=== PATIENT | female | born 1935 | race Caucasian/White ===

== ENCOUNTER 2017-03-14 08:30 | Outpatient (CLI) | payer MEDICARE ==
--- NOTE | 2017-03-14 15:52 | RAD ---
UPPER GI AND SMALL BOWEL: 03/14/17 HISTORY: 81-year-old female with history of small bowel obstruction with difficulty swallowing pills. There is normal swallowing function. There is a slightly prominent cricopharyngeus muscle. There is a lso dorsal indention of the cervical esophagus at the C6-C7 level from prominent disc osteophytes ant eriorly. Patient swallowed a barium tablet with the barium tablet initially hanging up in the vallecu la but did clear with additional swallow of water and passed into the stomach with ease. No esophagea l stricture, ulcer or mass. The fundus, body, and antrum of the stomach are within normal limits. Pylorus, duodenal bulb and C-lo op are unremarkable. Small bowel is well visualized. Barium completely passes through the small bowel and into the colon b y three hours. No evidence for small bowel obstruction. No evidence for significant mucosal fold thic kening or stricture or mass. IMPRESSION: Slightly prominent cricopharyngeus muscle. Some dorsal indention of the cervical esophagus at C6-C7 f rom prominent anterior disc osteophyte. Otherwise, unremarkable upper GI and small bowel series. POS: [facility]
== END 2017-03-14 08:31 | disposition home or self-care (01) ==
LOC: RAD 08:30
PROVIDERS: ATTEND Internal Medicine Gastroenterology
DX: Z09 Encounter for follow-up examination after completed treatment for conditions other than malignant neoplasm (principal); M25.78 Osteophyte, vertebrae; K22.8 Other specified diseases of esophagus; Z87.19 Personal history of other diseases of the digestive system
CPT/HCPCS: 74249

== ENCOUNTER 2018-02-26 10:13 | Inpatient (IN) | payer MEDICARE ==
[~2018-02-26 10:13] MED LIST: MD-Gastroview 120 ML BOT ONE
[2018-02-26 12:16] LABS: #Lymphocytes 1.3 thou/uL (1.20-3.40); #Monocytes 1.1 thou/uL (0.11-0.59); #Neutrophils 9.1 thou/uL (1.40-6.50); %Basophils 0.1 % (0.0-1.0); %Eosinophils 0.2 % (0.0-10.0); %Lymphocytes 11.4 % (21.0-51.0); %Monocytes 9.8 % (0.0-10.0); %Neutrophils 78.5 % (42.0-75.0); Hemoglobin 13.2 g/dL (12.0-16.0); Mean Corpuscular HGB CONC 31.5 g/dL (32.0-36.0); Mean Corpuscular Hemoglobin 30.7 pg (27.0-31.0); Mean Corpuscular Volume 97.5 fL (78.0-98.0); Mean Platelet Volume 6.5 fL (7.4-10.4); Platelet Count 302 thou/uL (130-400); RBC Distribution Width 13.2 % (11.5-14.5); Red Blood Cell (RBC) Count 4.29 mill/uL (4.20-5.40); White Blood Cell (WBC) Count 11.6 thou/uL (4.8-10.8)
[2018-02-26 12:37] LABS: ALT (SGPT) 8 U/L (8-55); AST (SGOT) 8 U/L (5-34); Albumin 3.1 g/dL (3.4-4.8); Alkaline Phosphatase 59 U/L (40-150); Anion Gap 14 mmol/L (10-20); BUN (Urea Nitrogen) 8 mg/dL (9.8-20.1); Bilirubin, Total 2.6 mg/dL (0.2-1.2); Calc. Creatinine Clearance 0 mL/min (70-130); Calcium 9.4 mg/dL (7.8-10.44); Carbon Dioxide 31 mmol/L (23-31); Chloride 94 mmol/L (98-107); Estimated GFR-MDRD 83; Globulin 2.4 g/dL (2.4-3.5); Glucose 100 mg/dL (83-110); Potassium 3.4 mmol/L (3.5-5.1); Protein, Total 5.5 g/dL (6.0-8.3); Sodium 136 mmol/L (136-145)
[2018-02-26] MEDS ORDERED: Benzocaine 20% Spray 60 ML CAN ONE (12:48)
[2018-02-26] MEDS ORDERED: Oxymetazoline HCl 0.05% ( 15 ML ) ONE (12:48)
[2018-02-26] MEDS ORDERED: Lidocaine Viscous Sol 2% 15 ml UD Cup ONE (12:59)
--- NOTE | 2018-02-26 13:04 | RAD ---
TWO VIEWS ABDOMEN AND 1 VIEW CHEST: HISTORY: Left lower quadrant pain, x 2 days. Small bowel obstruction. COMPARISON: 10/07/2002, chest radiograph 07/19/2014. FINDINGS: Atherosclerosis of the aorta. Normal cardiac silhouette. The pulmonary vessels and hilum are normal . Costophrenic angles are clear. There is increased opacification of the lung apices which may repr esent bilateral apical pleural thickening. There is no pneumothorax. No acute osseous abnormalities . Left-sided transvenous pacemaker terminates over the region of the right atrium and right ventricl e. TWO VIEWS ABDOMEN: There are multiple air-filled loops of distended small bowel, predominantly in the left hemiabdomen. There is a paucity of gas in the colon. There are degenerative changes of the lumbar spine with mil d scoliotic curvature, end plate osteophyte changes, and vacuum disk phenomenon. IMPRESSION: 1. Small bowel obstruction. 2. No acute cardiopulmonary process. POS: [facility]
[2018-02-26 13:52] LABS: Magnesium 1.5 mg/dL (1.6-2.6); Phosphorus 4.1 mg/dL (2.3-4.7)
--- NOTE | 2018-02-26 14:11 | RAD ---
ABDOMEN ONE VIEW: History: 82-year-old female with history of small bowel obstruction for NG tube placement evaluation. FINDINGS: Left ICD. Monitor leads overlie the chest. An NG tube has been placed which is somewhat coiled within the upper stomach. Abnormally dilated small bowel loops, evidence for small bowel obstruction. IMPRESSION: NG tube in place. Abnormal small bowel dilatation, evidence for small bowel obstruction. Continued fo llow up for clearing or stability. POS: [facility]
[2018-02-26] MEDS ORDERED: Morphine 2 MG/ML SYRINGE ONE (14:30)
[2018-02-26] MEDS ORDERED: hydrALAZINE 20 MG/ML VIAL SLOW IVP PRN (14:55)
[2018-02-26] MEDS ORDERED: Sodium Chloride 0.65% Nasal 44 ML BOT EA NARE PRN (14:55)
[2018-02-26] MEDS ORDERED: Morphine 2 MG/ML SYRINGE SLOW IVP PRN (14:55)
[2018-02-26] MEDS ORDERED: Acetaminophen 650 MG Suppository PR PRN (14:55)
[2018-02-26] MEDS ORDERED: Eucerin (Mineral Oil/Petrolatum,White) 30 gm Jar TOP PRN (14:55)
[2018-02-26] MEDS ORDERED: Cepastat Lozenges 1 LOZ PO PRN (14:55)
[2018-02-26] MEDS ORDERED: Bisacodyl 10 MG SUPP PR PRN (14:55)
[2018-02-26] MEDS ORDERED: Ondansetron PF 4 MG/2 ML Vial IVP PRN (14:55)
[2018-02-26] MEDS ORDERED: Artificial Tear Sol 15 ML BOT EA EYE PRN (14:55)
--- NOTE | 2018-02-26 15:07 | HP ---
PRIMARY CARE PHYSICIAN: City call admission. REASON FOR ADMISSION: Transfer from [facility] for small-bowel obstructi on. HISTORY OF PRESENT ILLNESS: An 82-year-old female who was evaluated today at [facility], she went there for nausea, vomiting and abdominal pain predominantly in left lower q uadrant for the last 2 days. She was having nausea, vomiting, and abdominal pain, which was getting worse with food. She also had several vomiting. She was uncomfortable at home. Her pain was about 10/10 in intensity with intermittent exacerbation. Patient also has history of small bowel obstructi on in the past and this time, patient was diagnosed with a small-bowel obstruction based on investiga tion done at [facility] and subsequently, patient was sent to our [facility] for higher level of care. In our emergency room, patient had NG tube placed; after that, pain was improving. Patient reports that in January, patient had a mechanical fall at doctor's office. Subsequently, she required hospitalization at [facility] for about a week and subsequently, she w as released to [facility] for 2 weeks. During that period, she had a decubitus ulcer in the sacral area that was gradually improving after wound care through home health when she release d from [facility], but still she is feeling sore in her sacral area. Currently, patient feels weak. She denies any fever or chills. She denies any UTI symptoms. She de nies any constipation, diarrhea, melena, hematochezia, hematemesis. REVIEW OF SYSTEMS: The following complete review of systems was negative, unless otherwise mentioned in the HPI or below: Constitutional: Weight loss or gain, ability to conduct usual activities. Sk in: Rash, itching. Eyes: Double vision, pain. ENT/Mouth: Nose bleeding, neck stiffness, pain, te nderness. Cardiovascular: Palpitations, dyspnea on exertion, orthopnea. Respiratory: Shortness of breath, wheezing, cough, hemoptysis, fever or night sweats. Gastrointestinal: Poor appetite, abdom inal pain, heartburn, nausea, vomiting, constipation, or diarrhea. Genitourinary: Urgency, frequenc y, dysuria, nocturia. Musculoskeletal: Pain, swelling. Neurologic/Psychiatric: Anxiety, depressio n. Allergy/Immunologic: Skin rash, bleeding tendency. Please see my HPI for pertinent positive and negative. All other review of system are reviewed and negative except as mentioned in the HPI. PAST MEDICAL HISTORY: Hypothyroidism, hypertension, gastroesophageal reflux disease, dyslipidemia, h istory of small-bowel obstruction, history of subarachnoid hemorrhage endometrial cancer, paroxysmal atrial fibrillation, hypertension. PAST SURGICAL HISTORY: Hernia repair x3, tonsillectomy, small-bowel obstruction required surgery in the past, carotid endarterectomy, cataract surgery, cholecystectomy, hysterectomy, right hip repair, rotator cuff repair, pacemaker placement. PAST PSYCHIATRIC HISTORY: Reviewed and negative. SOCIAL HISTORY: Patient is and lives at home with her . No history of tobacco, alcoh ol or illicit drug abuse. FAMILY HISTORY: No strong family history of premature coronary artery disease, stroke or cancer. EMERGENCY ROOM COURSE: Reviewed at [facility] where she was given Zosyn, IV fluid, Zofr an. ALLERGIES: CODEINE SULFATE, IODINE, LISINOPRIL, LOSARTAN and SULFA. CURRENT HOME MEDICATIONS: Aspirin 81 mg daily, Synthroid 50 mcg p.o. daily, calcium with vitamin D3 two tablets p.o. twice daily, Coenzyme Q10 one tablet daily, potassium chloride one tablet daily, mag nesium one tablet daily, Toprol-XL 25 mg twice daily, Prilosec 10 mg daily, Zocor 10 mg p.o. daily, s otalol 120 mg daily. Above-mentioned medication is based on emergency room record, the patient's family member does not biswas ve any medication with them and so unable to verify. PHYSICAL EXAMINATION: VITAL SIGNS: Currently, blood pressure 193/67, pulse 68, respiratory rate 20, temperature 97.9, satu ration 93% on room air, weight 58.5 kilograms. GENERAL: Patient is currently alert, awake hypertensive, in mild distress due to pain. HEAD: Normocephalic, atraumatic. EYES: Pupils are round, reactive to light. Extraocular muscles are intact. ENT: Oropharynx within normal limit. NG tube in place with low intermittent suction. NECK: Supple, no JVD, no thyromegaly, no carotid bruit. LUNGS: Clear to auscultation without any rhonchi or rales. CARDIAC: S1, S2 appears irregular. No murmur elicited, no gallop, no rub. ABDOMEN: Patient does have diffuse soreness, but predominantly in left lower quadrant. Bowel sound is tinkling sounds, but bowel sounds are now hypoactive. No organomegaly, no mass, no peritoneal sig n, no suprapubic tenderness. BACK: Unremarkable, no CVA tenderness. EXTREMITIES: Upper extremity: Passive movement of all joints are normal. Lower extremity: No mikayla a. Good distal pulsation. SKIN: No skin rash. HEMATOLOGICAL: No lymphadenopathy. BACK: Unable to review sacral part because patient is weak. SIGNIFICANT LABORATORY DATA: BMP: Sodium 136, potassium 3.4, chloride 94, carbon dioxide 31, anion gap 14, BUN 8, creatinine 0.68, glucose 100, calcium 9.4. LFT: Bilirubin 2.6, protein 5.5, albumin 3.1, alkaline phosphatase 59, AST , ALT 8. CBC: WBC 11.6, hemoglobin 13.2, platelet count 302 . [facility] record reviewed. ASSESSMENT AND PLAN: 1. Small-bowel obstruction. Patient's clinical presentation is consistent with small-bowel obstruct ion. Currently, patient is treated conservatively with NG tube with low intermittent suction. We wi ll keep her n.p.o. General Surgery will be consulted. Tomorrow, we will perform small bowel x-ray. We will treat her pain with morphine 2 mg IV q.2 hourly p.r.n., Pepcid 20 mg IV b.i.d. We will repl nicho electrolytes and continue with IV fluid for hydration. 2. Hypokalemia. We will replace potassium with IV fluid and we will repeat labs tomorrow. 3. Hypomagnesemia, magnesium sulfate 3 grams will be given and we will repeat magnesium level tomorr ow. 4. Hypertension. At this point, the patient is n.p.o., so we will hold on oral medication, but will use hydralazine and labetalol p.r.n. basis for blood pressure more than 170. Once patient's p.o. in take resumed and after confirming patient's home medication, we will resume selected blood pressure m edication. 5. Hypothyroidism. We will hold Synthroid therapy for now and will restart the patient's home dose of Synthroid when patient is able to take p.o. intake. 6. Paroxysmal atrial fibrillation. We will monitor and will continue patient's home medication upon confirmation. 7. Gastroesophageal reflux disease. We will continue Pepcid 20 mg IV b.i.d. 8. Dyslipidemia. We will resume Zocor therapy upon confirmation. 9. Deep venous thrombosis prophylaxis. Lovenox 40 mg subcu daily. 10. Gastrointestinal prophylaxis, Pepcid 20 mg IV b.i.d. 11. Code status: Patient is FULL CODE. Patient's is surrogate decision maker. 12. Decubitus ulcer. We will consult Wound Care team and we will review entire skin and treat appro priately. 13. Code status: Patient is FULL CODE. Patient's is surrogate decision maker. Disposition plan based on clinical course. We are expecting patient's stay in hospital more than 2 m idnights. Plan of care discussed with the patient and her at bedside in the emergency room.
[2018-02-26] MEDS ORDERED: Magnesium Sulfate 3 GM in Sodium Chloride 0.9% 100 ML IVPB SCH (15:30)
[2018-02-26] MEDS: D5 1/2 NS w/20 mEq KCL 1,000 ML IV SCH (16:01)
[2018-02-26 16:25] VITALS: BMI 20.2
[2018-02-26] MEDS: Famotidine/PF 20 mg/2ml Vial SLOW IVP SCH (20:08)
--- NOTE | 2018-02-26 22:23 | RAD ---
SMALL BOWEL EXAM: 02/26/18 Gastrografin is given through an NG tube. INDICATIONS: Small bowel obstruction. Sequential images were taken out to 3 hours 20 minutes. On the sweeping compound blender film, there are dilated gas filled loops of small bowel in the mid abdomen. Some scatter ed stool in the colon. At one hour, there is opacification of dilated loops of small bowel in the left abdomen which appear to represent jejunum. On the two hour film there is mild progression of contrast into the mid small bowel with continued di lated loops. Patient continued to have nausea and vomiting. A 3 hour and 20 minute was taken even tho ugh patient continued to vomit. There has been no progression of contrast on 3 hour and 20 minute zay m. Contrast remains in the stomach. Exam was terminated at this point so that patient could be reatta ched to suction. Followup abdominal films can be obtained as desired. IMPRESSION: Evidence of high grade small bowel obstruction in the mid small bowel. Contrast did not move beyond m id small bowel out to 3 hours and 20 minutes and patient continued to have vomiting. POS: [facility]
[2018-02-26] MEDS: Labetalol HCl 100 MG/20 ML VIAL SLOW IVP PRN (23:52)
[2018-02-27] MEDS: D5 1/2 NS w/20 mEq KCL 1,000 ML IV SCH ×3 (02:04→21:52)
[2018-02-27 05:39] LABS: #Monocytes 1.2 thou/uL (0.11-0.59); %Basophils 0.1 % (0.0-1.0); %Eosinophils 0.1 % (0.0-10.0); %Lymphocytes 6.8 % (21.0-51.0); %Monocytes 8.4 % (0.0-10.0); %Neutrophils 84.5 % (42.0-75.0); Hemoglobin 12.9 g/dL (12.0-16.0); Mean Corpuscular Hemoglobin 31.1 pg (27.0-31.0); Mean Corpuscular Volume 97.3 fL (78.0-98.0); Mean Platelet Volume 6.6 fL (7.4-10.4); Platelet Count 340 thou/uL (130-400); RBC Distribution Width 13.4 % (11.5-14.5); Red Blood Cell (RBC) Count 4.15 mill/uL (4.20-5.40); White Blood Cell (WBC) Count 14.2 thou/uL (4.8-10.8)
[2018-02-27 05:54] LABS: Lactic Acid 1.7 mmol/L (0.5-2.2)
[2018-02-27 05:59] LABS: ALT (SGPT) 8 U/L (8-55); AST (SGOT) 10 U/L (5-34); Albumin 3.3 g/dL (3.4-4.8); Alkaline Phosphatase 59 U/L (40-150); Anion Gap 13 mmol/L (10-20); BUN (Urea Nitrogen) 14 mg/dL (9.8-20.1); Calc. Creatinine Clearance 51 mL/min (70-130); Calcium 9.8 mg/dL (7.8-10.44); Carbon Dioxide 33 mmol/L (23-31); Chloride 96 mmol/L (98-107); Estimated GFR-MDRD 70; Globulin 2.7 g/dL (2.4-3.5); Glucose 163 mg/dL (83-110); Potassium 3.2 mmol/L (3.5-5.1); Sodium 139 mmol/L (136-145)
[2018-02-27 07:31] LABS: Clarity CLOUDY (Clear)
[2018-02-27 07:33] LABS: Bacteria/HPF None Seen HPF (None Seen); Hyaline Casts/LPF 0-3 HYALINE CAST LPF (0-3 Hyaline); Pathc Cast-AUWi Flag 0.87 (0-2.49); Squamous Epithelial 0-3 HPF (0-3)
[2018-02-27 07:40] LABS: Leukocyte Unable to Interpret (Negative); Nitrite Unable to Interpret (Negative)
[2018-02-27 07:41] LABS: Bilirubin Unable to Interpret (Negative); Blood, Urine Unable to Interpret (Negative); Glucose, Urine (Dipstick) Unable to Interpret mg/dL (Negative); Protein, Urine (Dipstick) Unable to Interpret mg/dL (Neg-Trace); Urobilinogen UNABLE TO INTERPRET mg/dL (0.2-1.0)
[2018-02-27 07:52] LABS: Specific Gravity, Urine 1.016 (1.002-1.036); pH, Urine 6.1 (5.0-9.0)
[2018-02-27] MEDS: Enoxaparin Sodium 40 MG/0.4 ML SYRINGE SC SCH (08:08)
[2018-02-27] MEDS: Famotidine/PF 20 mg/2ml Vial SLOW IVP SCH ×2 (08:08→21:53)
--- NOTE | 2018-02-27 09:38 | PDOC.PN ---
- Subjective Encounter Start Date: 02/27/18 Encounter Start Time: 08:00 -: old records requested/rev Patient seen and examined. No new complaints. No overnight events - Objective Resuscitation Status: Resuscitation Status FULL:Full Resuscitation MAR Reviewed: Yes Vital Signs & Weight: Vital Signs (12 hours) Temp Pulse Resp BP BP Pulse Ox 02/27/18 07:42 97.5 F L 68 16 170/73 H 95 02/27/18 04:45 162/71 H 02/27/18 04:00 97.4 F L 69 20 167/70 H 95 02/27/18 01:25 123/77 02/27/18 00:07 172/79 H 02/26/18 23:59 64 172/80 H 02/26/18 23:55 64 196/78 H 02/26/18 23:52 66 196/111 H 02/26/18 23:50 97.6 F 66 16 196/111 H 97 Weight Weight 129 lb I&O: 02/26/18 02/27/18 02/28/18 06:59 06:59 06:59 Intake Total 900 Output Total 3700 Balance -2800 Result Diagrams: 02/27/18 05:14 02/27/18 05:14 Radiology Reviewed by me: Yes (small bowel xray noted) Phys Exam - Physical Examination Constitutional: NAD HEENT: PERRLA, moist MMs, sclera anicteric NG tube+ Neck: no JVD, supple Respiratory: no wheezing, no rales, no rhonchi Cardiovascular: RRR, no significant murmur, no rub Gastrointestinal: soft, non-tender, no distention, positive bowel sounds Musculoskeletal: no edema, pulses present Neurological: non-focal, normal sensation, moves all 4 limbs Lymphatic: no nodes Psychiatric: normal affect, A&O x 3 Skin: no rash, normal turgor Dx/Plan (1) SBO (small bowel obstruction) Code(s): K56.609 - UNSP INTESTNL OBST, UNSP TO PARTIAL VERSUS COMPLETE OBST Status: Acute (2) Hypokalemia Code(s): E87.6 - HYPOKALEMIA Status: Acute (3) Hypomagnesemia Code(s): E83.42 - HYPOMAGNESEMIA Status: Acute (4) Dyslipidemia Code(s): E78.5 - HYPERLIPIDEMIA, UNSPECIFIED Status: Chronic (5) Hypertension Code(s): I10 - ESSENTIAL (PRIMARY) HYPERTENSION Status: Chronic (6) Hypothyroidism Code(s): E03.9 - HYPOTHYROIDISM, UNSPECIFIED Status: Chronic (7) PAF (paroxysmal atrial fibrillation) Code(s): I48.0 - PAROXYSMAL ATRIAL FIBRILLATION Status: Chronic - Plan cont current plan of care * continue IVF * continue NG tube with LIS * General surgery on case * pain controlled * medication reviewed as below * symptomatic treatment. Review of Systems - Review of Systems ENT: negative: Ear Pain, Ear Discharge, Nose Pain, Nose Discharge, Nose Congestion, Mouth Pain, Mouth Swelling, Throat Pain, Throat Swelling, Other Respiratory: negative: Cough, Dry, Shortness of Breath, Hemoptysis, SOB with Excertion, Pleuritic Pain, Sputum, Wheezing Cardiovascular: negative: chest pain, palpitations, orthopnea, paroxysmal nocturnal dyspnea, edema, light headedness, other Gastrointestinal: negative: Nausea, Vomiting, Abdominal Pain, Diarrhea, Constipation, Melena, Hematochezia, Other Genitourinary: negative: Dysuria, Frequency, Incontinence, Hematuria, Retention , Other Musculoskeletal: negative: Neck Pain, Shoulder Pain, Arm Pain, Back Pain, Hand Pain, Leg Pain, Foot Pain, Other - Medications/Allergies Allergies/Adverse Reactions: Allergies Allergy/AdvReac Type Severity Reaction Status Date / Time codeine Allergy Verified 07/19/14 13:17 iodine Allergy Verified 07/19/14 13:17 lisinopril Allergy Verified 07/19/14 13:17 losartan [Losartan] Allergy Verified 07/19/14 13:17 Sulfa (Sulfonamide Allergy Verified 07/19/14 13:17 Antibiotics) Medications: Current Medications Acetaminophen (Tylenol) 650 mg NC Q4H PRN PRN Reason: Headache/Fever/Mild Pain (1-3) Albuterol/Ipratropium (Duoneb) 3 ml NEB [id number] PRN PRN Reason: SOB &/or Wheezing Artificial Tears (Tears Renewed 15ml Bottle) 2 drop EA EYE PRN PRN PRN Reason: Dry Eyes Bisacodyl (Dulcolax) 10 mg NC DAILYPRN PRN PRN Reason: Constipation Enoxaparin Sodium (Lovenox) 40 mg SC 0900 [facility] Last Admin: 02/27/18 08:08 Dose: 40 mg Famotidine (Pepcid) 20 mg SLOW IVP Q12HR [facility] Last Admin: 02/27/18 08:08 Dose: 20 mg Hydralazine HCl (Apresoline) 10 mg SLOW IVP Q4H PRN PRN Reason: SBP Greater Than 170 Potassium Chloride/Dextrose/Sod Cl (D5 1/2 Ns W/20 Meq Kcl) 1,000 mls @ 100 mls /hr IV .Q10H [facility] Last Admin: 02/27/18 02:04 Dose: Not Given Labetalol HCl (Normodyne) 20 mg SLOW IVP Q4H PRN PRN Reason: SBP Greater Than 170 Last Admin: 02/26/18 23:52 Dose: 20 mg Mineral Oil/White Petrolatum (Eucerin Cream) 0 gm TOP BIDPRN PRN PRN Reason: Dry Skin Morphine Sulfate (Morphine) 2 mg SLOW IVP Q2H PRN PRN Reason: Pain Ondansetron HCl (Zofran) 4 mg IVP Q6H PRN PRN Reason: Nausea/Vomiting Last Admin: 02/26/18 20:06 Dose: 4 mg Sodium Chloride ([place] Nasal [place] 0.65%) 0 ml EA NARE QIDPRN PRN PRN Reason: Nasal Congestion Throat Lozenges (Cepastat Lozenges) 1 danita PO Q2H PRN PRN Reason: Sore Throat
--- NOTE | 2018-02-27 11:16 | RAD ---
ABDOMEN ONE VIEW: History: Small bowel obstruction. Comparison: Small bowel follow through prior day. FINDINGS: There is contrast in the proximal small bowel. No contrast is seen in the colon. IMPRESSION: Findings suggesting a high grade small bowel obstruction. POS: [facility]
--- NOTE | 2018-02-27 18:58 | PRG ---
DATE OF SERVICE: 02/27/2018 SUBJECTIVE: The patient on the surgical floor that we are seen in consultation for suspected small-b owel obstruction. The patient yesterday was evaluated by Dr. Cyr, who ordered a small bowel follow through study which showed findings suggesting a high grade small-bowel obstruction. Overnight, she was on nasogastric tube at low intermittent suction and she tolerated this well. This morning, she states that she is not passing any gas nor had a bowel movement, but her nausea is definitely improve d and she has no abdominal pain. PHYSICAL EXAMINATION: VITAL SIGNS: Temperature is 97.5, heart rate 68, blood pressure 170/73, respirations 16, oxygen satu ration 95% on room air. GENERAL: The patient is resting comfortably in bed. She is awake, alert, and appropriate. HEENT: Unremarkable. NG tube is intact and functioning. LUNGS: Clear to auscultation bilaterally. HEART: Regular rate and rhythm. ABDOMEN: Soft, nontender with questionable hypoactive bowel sounds. EXTREMITIES: Neurovascularly intact x4. LABORATORY DATA: White blood cell count 14.2, hemoglobin 12.9, hematocrit 40.4, platelets 340. Sodi um 139, potassium 3.2, chloride 96, CO2 of 33, BUN 14, creatinine 0.79, glucose 163. KUB this mornin g again shows findings suspicious of high grade small-bowel obstruction, though compared to yesterday 's small bowel follow through appears that there may have been some movement of contrast. ASSESSMENT AND PLAN: Likely small-bowel obstruction. Plan will be to continue conservative management, NG tube to low intermittent suction. Continue n.p. o. status, IV hydration and await for return of bowel function. The examination, laboratory and radi ographic findings were discussed with Dr. Cyr this morning and he will reexamine the patient again in the morning.
[2018-02-28] MEDS: D5 1/2 NS w/20 mEq KCL 1,000 ML IV SCH ×3 (09:15→19:52)
--- NOTE | 2018-02-28 09:17 | PDOC.PN ---
- Subjective Encounter Start Date: 02/28/18 Encounter Start Time: 08:00 -: old records requested/rev Patient seen and examined. No new complaints. No overnight events NG tube removed - Objective Resuscitation Status: Resuscitation Status FULL:Full Resuscitation MAR Reviewed: Yes Vital Signs & Weight: Vital Signs (12 hours) Temp Pulse Resp BP Pulse Ox 02/28/18 06:56 98.2 F 69 18 174/73 H 94 L 02/28/18 04:06 97.9 F 71 18 144/62 H 95 02/28/18 00:00 98.2 F 62 18 160/68 H 93 L 02/27/18 21:52 97 Weight Weight 129 lb I&O: 02/27/18 02/28/18 03/01/18 06:59 06:59 06:59 Intake Total 900 1200 Output Total 3700 50 Balance -2800 1150 Result Diagrams: 02/27/18 05:14 02/27/18 05:14 Phys Exam - Physical Examination Constitutional: NAD HEENT: PERRLA, moist MMs, sclera anicteric Neck: no JVD, supple Respiratory: no wheezing, no rales, no rhonchi Cardiovascular: RRR, no significant murmur, no rub Gastrointestinal: soft, non-tender, no distention, positive bowel sounds Musculoskeletal: no edema, pulses present Neurological: non-focal, normal sensation Lymphatic: no nodes Psychiatric: normal affect Skin: no rash, normal turgor Dx/Plan (1) SBO (small bowel obstruction) Code(s): K56.609 - UNSP INTESTNL OBST, UNSP TO PARTIAL VERSUS COMPLETE OBST Status: Acute (2) Hypokalemia Code(s): E87.6 - HYPOKALEMIA Status: Acute (3) Hypomagnesemia Code(s): E83.42 - HYPOMAGNESEMIA Status: Acute (4) Dyslipidemia Code(s): E78.5 - HYPERLIPIDEMIA, UNSPECIFIED Status: Chronic (5) Hypertension Code(s): I10 - ESSENTIAL (PRIMARY) HYPERTENSION Status: Chronic (6) Hypothyroidism Code(s): E03.9 - HYPOTHYROIDISM, UNSPECIFIED Status: Chronic (7) PAF (paroxysmal atrial fibrillation) Code(s): I48.0 - PAROXYSMAL ATRIAL FIBRILLATION Status: Chronic - Plan cont current plan of care * pt is NPO, diet advancement will defer to surgeon * she has Bowel sound now, but has no BM yet, will continue to monitor * continue IVF for now * repeat labs tomorrow * medication reviewed as below * symptomatic treatment * I have updated condition to her . Review of Systems - Review of Systems ENT: negative: Ear Pain, Ear Discharge, Nose Pain, Nose Discharge, Nose Congestion, Mouth Pain, Mouth Swelling, Throat Pain, Throat Swelling, Other Respiratory: negative: Cough, Dry, Shortness of Breath, Hemoptysis, SOB with Excertion, Pleuritic Pain, Sputum, Wheezing Cardiovascular: negative: chest pain, palpitations, orthopnea, paroxysmal nocturnal dyspnea, edema, light headedness, other Gastrointestinal: negative: Nausea, Vomiting, Abdominal Pain, Diarrhea, Constipation, Melena, Hematochezia, Other Genitourinary: negative: Dysuria, Frequency, Incontinence, Hematuria, Retention , Other Musculoskeletal: negative: Neck Pain, Shoulder Pain, Arm Pain, Back Pain, Hand Pain, Leg Pain, Foot Pain, Other Skin: negative: Rash, Lesions, Chas, Bruising, Other Other: not reliable due to her level of cognitive status - Medications/Allergies Allergies/Adverse Reactions: Allergies Allergy/AdvReac Type Severity Reaction Status Date / Time codeine Allergy Verified 07/19/14 13:17 iodine Allergy Verified 07/19/14 13:17 lisinopril Allergy Verified 07/19/14 13:17 losartan [Losartan] Allergy Verified 07/19/14 13:17 Sulfa (Sulfonamide Allergy Verified 07/19/14 13:17 Antibiotics) Medications: Current Medications Acetaminophen (Tylenol) 650 mg MS Q4H PRN PRN Reason: Headache/Fever/Mild Pain (1-3) Albuterol/Ipratropium (Duoneb) 3 ml NEB [id number] PRN PRN Reason: SOB &/or Wheezing Artificial Tears (Tears Renewed 15ml Bottle) 2 drop EA EYE PRN PRN PRN Reason: Dry Eyes Bisacodyl (Dulcolax) 10 mg MS DAILYPRN PRN PRN Reason: Constipation Enoxaparin Sodium (Lovenox) 40 mg SC 0900 [facility] Last Admin: 02/27/18 08:08 Dose: 40 mg Famotidine (Pepcid) 20 mg SLOW IVP Q12HR [facility] Last Admin: 02/27/18 21:53 Dose: 20 mg Hydralazine HCl (Apresoline) 10 mg SLOW IVP Q4H PRN PRN Reason: SBP Greater Than 170 Potassium Chloride/Dextrose/Sod Cl (D5 1/2 Ns W/20 Meq Kcl) 1,000 mls @ 100 mls /hr IV .Q10H [facility] Last Admin: 02/28/18 09:15 Dose: 1,000 mls Labetalol HCl (Normodyne) 20 mg SLOW IVP Q4H PRN PRN Reason: SBP Greater Than 170 Last Admin: 02/26/18 23:52 Dose: 20 mg Mineral Oil/White Petrolatum (Eucerin Cream) 0 gm TOP BIDPRN PRN PRN Reason: Dry Skin Morphine Sulfate (Morphine) 2 mg SLOW IVP Q2H PRN PRN Reason: Pain Ondansetron HCl (Zofran) 4 mg IVP Q6H PRN PRN Reason: Nausea/Vomiting Last Admin: 02/26/18 20:06 Dose: 4 mg Sodium Chloride ([place] Nasal [place] 0.65%) 0 ml EA NARE QIDPRN PRN PRN Reason: Nasal Congestion Throat Lozenges (Cepastat Lozenges) 1 danita PO Q2H PRN PRN Reason: Sore Throat
[2018-02-28] MEDS: Enoxaparin Sodium 40 MG/0.4 ML SYRINGE SC SCH (09:19)
[2018-02-28] MEDS: Famotidine/PF 20 mg/2ml Vial SLOW IVP SCH ×2 (09:19→22:07)
--- NOTE | 2018-02-28 10:07 | RAD ---
ABDOMEN RADIOGRAPH FRONTAL VIEW KUB: INDICATION: Small bowel obstruction, followup. FINDINGS: There is enteric contrast localizing to the distal transverse and descending colon. There are scatte red air-filled bowel loops without significant dilatation. No free air visualized. Imaged lung base s are clear. IMPRESSION: Contrast has traversed to the level of the distal colon. POS: [facility]
[2018-02-28] MEDS ORDERED: Lactinex Tablet PO SCH (11:00)
--- NOTE | 2018-02-28 11:56 | CT ---
CT HEAD WITHOUT CONTRAST: Multiple axial tomograms were obtained through the head without iv enhancement. INDICATION: Altered mental status. COMPARISON: No comparison. FINDINGS: Ventricles have normal size and position. Moderate chronic ischemic white matter change is seen. No evidence of intracranial mass or hemorrhage. No evidence of cortical infarct. Sinuses and mastoids are clear. IMPRESSION: Chronic ischemic white matter changes are evident. No evidence of acute process. POS: [facility]
--- NOTE | 2018-02-28 14:44 | PRG ---
DATE OF SERVICE: 02/28/2018 SUBJECTIVE: The patient is currently on the surgical floor. She is a patient we are seeing in consu ltation for a small-bowel obstruction. Last night, the patient removed her nasogastric tube. We mad e the decision to allow to stay out overnight to see how she tolerated this. By report from the nurs es, she had no nausea or vomiting afterwards. This morning she states that she feels a little little better. She believes she is passing gas and had a small bowel movement. The patient seems somewhat confused this morning and more so than yesterday. Her is not here to verify how she is acti ng this morning. In regards to whether this her baseline or not. PHYSICAL EXAMINATION: VITAL SIGNS: Temperature is 98.2, heart rate 69, respirations 18, oxygen saturation 94% on room air, blood pressure is 174/73. GENERAL: The patient is awake, conversant, appropriate. She just appears to be somewhat confused. HEENT: Unremarkable. LUNGS: Clear to auscultation with moderate inspiratory and expiratory effort. HEART: Regular rate and rhythm. ABDOMEN: Soft, flat, nontender with hypoactive bowel sounds. EXTREMITIES: Neurovascularly intact x4. LABORATORY DATA: There are no labs or radiographs to review this morning. ASSESSMENT AND PLAN: Probable small-bowel obstruction, resolving. Plan will be to continue conservative management. We will allow her clear liquid diet this morning. In light of her mental status, we will do a noncontrasted brain CT study over this morning. Of note , just prior to this dictation the patient was seen with physical therapy, ambulating with minimal as sistance. We will also repeat a urinalysis. Her original on admission was inconclusive. The evalua tion and examination were done with Dr. Cyr this morning during rounds.
[2018-02-28] MEDS ORDERED: diphenhydrAMINE 50 MG/ML VIAL IVP SCH (19:45)
[2018-02-28] MEDS ORDERED: Lorazepam 2 MG/ML VIAL SLOW IVP SCH (19:45)
[2018-02-28] MEDS: Senokot S 8.6-50 MG TAB PO SCH (22:07)
[2018-02-28] MEDS: Simvastatin 5 MG TAB PO SCH (22:07)
[2018-02-28] MEDS: Sotalol HCl 80 MG TAB PO SCH (22:07)
[2018-03-01] MEDS: Levothyroxine Sodium 50 MCG TAB PO SCH (05:36)
[2018-03-01 06:25] LABS: Anion Gap 10 mmol/L (10-20); BUN (Urea Nitrogen) 8 mg/dL (9.8-20.1); Calc. Creatinine Clearance 68 mL/min (70-130); Calcium 8.2 mg/dL (7.8-10.44); Carbon Dioxide 28 mmol/L (23-31); Chloride 103 mmol/L (98-107); Estimated GFR-MDRD Greater than 90; Glucose 93 mg/dL (83-110); Sodium 137 mmol/L (136-145)
[2018-03-01] MEDS ORDERED: Diabetic Tussin 200 MG/10 ML UDCUP PO PRN (06:44)
[2018-03-01] MEDS ORDERED: Acetaminophen 500 MG TAB PO PRN (06:44)
[2018-03-01] MEDS ORDERED: Loratadine 10 MG TAB PO PRN (06:44)
[2018-03-01] MEDS ORDERED: Ondansetron ODT 4 MG TAB SL PRN (06:44)
[2018-03-01 06:53] LABS: #Basophils 0.1 thou/uL (0.0-0.2); #Eosinphils 0.4 thou/uL (0.0-0.7); #Lymphocytes 1.4 thou/uL (1.20-3.40); #Neutrophils 3.6 thou/uL (1.40-6.50); %Basophils 1.3 % (0.0-1.0); %Eosinophils 5.5 % (0.0-10.0); %Lymphocytes 22.5 % (21.0-51.0); %Monocytes 14.9 % (0.0-10.0); %Neutrophils 55.8 % (42.0-75.0); Hemoglobin 10.8 g/dL (12.0-16.0); Mean Corpuscular HGB CONC 32.7 g/dL (32.0-36.0); Mean Corpuscular Hemoglobin 32.2 pg (27.0-31.0); Mean Corpuscular Volume 98.2 fL (78.0-98.0); Mean Platelet Volume 8.5 fL (7.4-10.4); PLT Morphology Comment Appears Decreased; Platelet Count 127 thou/uL (130-400); RBC Distribution Width 13.2 % (11.5-14.5); RBC Morphology Normal; Red Blood Cell (RBC) Count 3.37 mill/uL (4.20-5.40); White Blood Cell (WBC) Count 6.4 thou/uL (4.8-10.8)
[2018-03-01] MEDS: Multivit, Chewable SF 1 TAB PO SCH (09:56)
[2018-03-01] MEDS: Fish Oil 1,000 MG CAP PO SCH (09:56)
[2018-03-01] MEDS: Polyethylene Glycol 3350 17 GM Packet PO SCH (09:56)
[2018-03-01] MEDS: Ubidecarenone 50 MG CAP PO SCH (09:56)
[2018-03-01] MEDS: Lactinex Tablet PO SCH (09:57)
[2018-03-01] MEDS: Cyanocobalamin (Vitamin B-12) 1,000 MCG TAB PO SCH (09:57)
[2018-03-01] MEDS: Calcium Carbonate + Vit D 1 TAB PO SCH ×2 (09:57→20:35)
[2018-03-01] MEDS: Folic Acid 1 MG TAB PO SCH (09:57)
[2018-03-01] MEDS: Senokot S 8.6-50 MG TAB PO SCH ×2 (09:58→20:35)
[2018-03-01] MEDS: Sotalol HCl 80 MG TAB PO SCH ×2 (09:58→20:34)
[2018-03-01] MEDS: Enoxaparin Sodium 40 MG/0.4 ML SYRINGE SC SCH (09:59)
[2018-03-01] MEDS: D5 1/2 NS w/20 mEq KCL 1,000 ML IV SCH (10:00)
--- NOTE | 2018-03-01 10:32 | PDOC.PN ---
- Subjective Encounter Start Date: 03/01/18 Encounter Start Time: 08:00 Patient seen and examined. No new complaints. No overnight events - Objective Resuscitation Status: Resuscitation Status FULL:Full Resuscitation MAR Reviewed: Yes Vital Signs & Weight: Vital Signs (12 hours) Temp Pulse Resp BP BP Pulse Ox 03/01/18 09:58 69 162/71 H 03/01/18 08:00 97.8 F 69 14 162/71 H 96 03/01/18 03:49 97 03/01/18 03:05 97.8 F 73 18 160/73 H 97 Weight Admit Weight 129 lb Weight 129 lb I&O: 02/28/18 03/01/18 03/02/18 06:59 06:59 06:59 Intake Total 1200 2420 Output Total 50 300 Balance 1150 2120 Result Diagrams: 03/01/18 04:44 03/01/18 04:44 Radiology Reviewed by me: Yes (CT brain negative) Phys Exam - Physical Examination Constitutional: NAD HEENT: PERRLA, moist MMs, sclera anicteric Neck: no JVD, supple Respiratory: no wheezing, no rales, no rhonchi Cardiovascular: RRR, no significant murmur, no rub Gastrointestinal: soft, non-tender, no distention, positive bowel sounds Musculoskeletal: no edema, pulses present Neurological: non-focal, normal sensation Lymphatic: no nodes Psychiatric: normal affect Skin: no rash, normal turgor Dx/Plan (1) SBO (small bowel obstruction) Code(s): K56.609 - UNSP INTESTNL OBST, UNSP TO PARTIAL VERSUS COMPLETE OBST Status: Resolved (2) Hypokalemia Code(s): E87.6 - HYPOKALEMIA Status: Resolved (3) Hypomagnesemia Code(s): E83.42 - HYPOMAGNESEMIA Status: Resolved (4) Dyslipidemia Code(s): E78.5 - HYPERLIPIDEMIA, UNSPECIFIED Status: Chronic (5) Hypertension Code(s): I10 - ESSENTIAL (PRIMARY) HYPERTENSION Status: Chronic (6) Hypothyroidism Code(s): E03.9 - HYPOTHYROIDISM, UNSPECIFIED Status: Chronic (7) PAF (paroxysmal atrial fibrillation) Code(s): I48.0 - PAROXYSMAL ATRIAL FIBRILLATION Status: Chronic (8) Dementia Code(s): F03.90 - UNSPECIFIED DEMENTIA WITHOUT BEHAVIORAL DISTURBANCE Status: Chronic (9) Anemia, macrocytic Code(s): D53.9 - NUTRITIONAL ANEMIA, UNSPECIFIED Status: Chronic - Plan cont current plan of care, PT/OT * add folic acid * start her selected home meds * medication reviewed as below * symptomatic treatment * start PT * discharge planning * advance diet as per surgeon. Review of Systems - Review of Systems ENT: negative: Ear Pain, Ear Discharge, Nose Pain, Nose Discharge, Nose Congestion, Mouth Pain, Mouth Swelling, Throat Pain, Throat Swelling, Other Respiratory: negative: Cough, Dry, Shortness of Breath, Hemoptysis, SOB with Excertion, Pleuritic Pain, Sputum, Wheezing Cardiovascular: negative: chest pain, palpitations, orthopnea, paroxysmal nocturnal dyspnea, edema, light headedness, other Gastrointestinal: negative: Nausea, Vomiting, Abdominal Pain, Diarrhea, Constipation, Melena, Hematochezia, Other Genitourinary: negative: Dysuria, Frequency, Incontinence, Hematuria, Retention , Other Musculoskeletal: negative: Neck Pain, Shoulder Pain, Arm Pain, Back Pain, Hand Pain, Leg Pain, Foot Pain, Other Other: not reliable due to cognitive status - Medications/Allergies Allergies/Adverse Reactions: Allergies Allergy/AdvReac Type Severity Reaction Status Date / Time codeine Allergy Verified 07/19/14 13:17 iodine Allergy Verified 07/19/14 13:17 lisinopril Allergy Verified 07/19/14 13:17 losartan [Losartan] Allergy Verified 07/19/14 13:17 Sulfa (Sulfonamide Allergy Verified 07/19/14 13:17 Antibiotics) Medications: Current Medications Acetaminophen (Tylenol) 650 mg [place] Q4H PRN PRN Reason: Headache/Fever/Mild Pain (1-3) Acetaminophen (Tylenol) 1,000 mg PO Q6H PRN PRN Reason: Mild Pain (1-3) Acidophilus (Floranex) 1 tab PO DAILY [facility] Last Admin: 03/01/18 09:57 Dose: 1 tab Albuterol/Ipratropium (Duoneb) 3 ml NEB [id number] PRN PRN Reason: SOB &/or Wheezing Artificial Tears (Tears Renewed 15ml Bottle) 2 drop EA EYE PRN PRN PRN Reason: Dry Eyes Bisacodyl (Dulcolax) 10 mg [place] DAILYPRN PRN PRN Reason: Constipation Calcium/Vitamin D (Caltrate 600 + Vit D) 2 tab PO BID [facility] Last Admin: 03/01/18 09:57 Dose: 2 tab Coenzyme Q10 (Coenzyme Q10) 200 mg PO DAILY [facility] Last Admin: 03/01/18 09:56 Dose: 200 mg Cyanocobalamin (Vitamin B-12) 1,000 mcg PO DAILY [facility] Last Admin: 03/01/18 09:57 Dose: 1,000 mcg Enoxaparin Sodium (Lovenox) 40 mg SC 0900 [facility] Last Admin: 03/01/18 09:59 Dose: 40 mg Fish Oil (Fish Oil) 1,000 mg PO DAILY [facility] Last Admin: 03/01/18 09:56 Dose: 1,000 mg Folic Acid (Folvite) 1 mg PO DAILY [facility] Last Admin: 03/01/18 09:57 Dose: 1 mg Guaifenesin (Robitussin Sf) 200 mg PO Q4H PRN PRN Reason: Cough Hydralazine HCl (Apresoline) 10 mg SLOW IVP Q4H PRN PRN Reason: SBP Greater Than 170 Potassium Chloride/Dextrose/Sod Cl (D5 1/2 Ns W/20 Meq Kcl) 1,000 mls @ 50 mls/ hr IV .Q20H [facility] Last Admin: 03/01/18 10:00 Dose: Not Given Labetalol HCl (Normodyne) 20 mg SLOW IVP Q4H PRN PRN Reason: SBP Greater Than 170 Last Admin: 02/26/18 23:52 Dose: 20 mg Levothyroxine Sodium (Synthroid) 50 mcg PO 0600 [facility] Last Admin: 03/01/18 05:36 Dose: 50 mcg Loratadine (Claritin) 10 mg PO DAILYPRN PRN PRN Reason: Sinus Symptoms Metoprolol Succinate (Toprol Xl) 25 mg PO DAILY [facility] Last Admin: 03/01/18 10:05 Dose: 25 mg Mineral Oil/White Petrolatum (Eucerin Cream) 0 gm TOP BIDPRN PRN PRN Reason: Dry Skin Morphine Sulfate (Morphine) 2 mg SLOW IVP Q2H PRN PRN Reason: Pain Multivitamins (Multivit, Chewable Sf) 1 tab PO DAILY [facility] Last Admin: 03/01/18 09:56 Dose: 1 tab Ondansetron HCl (Zofran) 4 mg IVP Q6H PRN PRN Reason: Nausea/Vomiting Last Admin: 02/26/18 20:06 Dose: 4 mg Ondansetron HCl (Zofran Odt) 4 mg SL Q6H PRN PRN Reason: Nausea/Vomiting Pantoprazole Sodium (Protonix) 40 mg PO DAILY [facility] Last Admin: 03/01/18 09:57 Dose: 40 mg Cranberry [Cranberry (] 1,000 Mg) 0 each PO DAILY [facility] Polyethylene Glycol (Miralax) 17 gm PO DAILY [facility] Last Admin: 03/01/18 09:56 Dose: 17 gm Senna/Docusate Sodium (Senokot S) 1 tab PO BID [facility] Last Admin: 03/01/18 09:58 Dose: 1 tab Simvastatin (Zocor) 10 mg PO HS [facility] Last Admin: 02/28/18 22:07 Dose: Not Given Sodium Chloride ([place] Nasal [place] 0.65%) 0 ml EA NARE QIDPRN PRN PRN Reason: Nasal Congestion Sotalol HCl (Betapace) 40 mg PO BID [facility] Last Admin: 03/01/18 09:58 Dose: 40 mg Throat Lozenges (Cepastat Lozenges) 1 danita PO Q2H PRN PRN Reason: Sore Throat
--- NOTE | 2018-03-01 12:50 | PRG ---
DATE OF SERVICE: 03/01/2018 SUBJECTIVE: Patient has resolving small-bowel obstruction that we are seeing in consultation. Yeste rday, we advanced her diet to clear liquids which she tolerated overnight. She has had two more rajesh l movements. She denies nausea or vomiting or pain. Overnight, she had no issues. PHYSICAL EXAMINATION: VITAL SIGNS: Temperature is 97.8, heart rate 69, blood pressure 162/71, respirations 14, oxygen satu ration is 96% on room air. GENERAL: Patient is resting comfortably in bed. She is alert and conversant, though her carie cribes her as occasionally confused, which yesterday she underwent a CT scan of her brain that was un remarkable. HEENT: Unremarkable. LUNGS: Clear to auscultation with good inspiratory and expiratory effort. HEART: Regular rate and rhythm. ABDOMEN: Soft, flat, nontender with active bowel sounds. EXTREMITIES: Neurovascularly intact x4. LABORATORY DATA: White blood cell count 6.4, hemoglobin 10.8, hematocrit 33.1, platelets 127. Sodiu m 137, potassium 4.0, chloride 103, CO2 is 28, BUN 8, creatinine 0.59, glucose 93. ASSESSMENT AND PLAN: Status post small-bowel obstruction, resolved. Plan will be to advance her to a regular diet. She may be discharged at any point after tolerating this diet.
[2018-03-01 13:56] LABS: Bilirubin Negative (Negative); Blood, Urine Trace (Negative); Clarity CLOUDY (Clear); Glucose, Urine (Dipstick) Negative (Negative); Leukocyte Moderate (Negative); Nitrite Positive (Negative); Protein, Urine (Dipstick) Negative (Neg-Trace); pH, Urine 7.5 (5.0-9.0)
[2018-03-01 13:57] LABS: Bacteria/HPF 1+ HPF (None Seen); Hyaline Casts/LPF 0-3 HYALINE CAST LPF (0-3 Hyaline); Pathc Cast-AUWi Flag 0.14 (0-2.49); Squamous Epithelial None Seen HPF (0-3)
[2018-03-01 13:59] LABS: Yeast-AUWi Flag 80.8 (0-25.0)
[2018-03-01 14:10] LABS: RBC/HPF 0-3 HPF (0-3); Yeast-All Forms Rare HPF (None Seen)
[2018-03-01] MEDS ORDERED: cefTRIAXone\\ROCEPHIN 1 GM in Sodium Chloride 0.9% 100 ML IVPB SCH (15:00)
[2018-03-01] MEDS: Labetalol HCl 100 MG/20 ML VIAL SLOW IVP PRN (20:35)
[2018-03-01] MEDS: Simvastatin 5 MG TAB PO SCH (20:40)
[2018-03-02] MEDS: Levothyroxine Sodium 50 MCG TAB PO SCH (06:01)
[2018-03-02] MEDS: D5 1/2 NS w/20 mEq KCL 1,000 ML IV SCH (09:08)
[2018-03-02] MEDS: Sotalol HCl 80 MG TAB PO SCH ×2 (09:08→19:52)
[2018-03-02] MEDS: Cyanocobalamin (Vitamin B-12) 1,000 MCG TAB PO SCH (09:08)
[2018-03-02] MEDS: Lactinex Tablet PO SCH (09:08)
[2018-03-02] MEDS: Ubidecarenone 50 MG CAP PO SCH (09:09)
[2018-03-02] MEDS: Folic Acid 1 MG TAB PO SCH (09:09)
[2018-03-02] MEDS: Enoxaparin Sodium 40 MG/0.4 ML SYRINGE SC SCH (09:10)
[2018-03-02] MEDS: Polyethylene Glycol 3350 17 GM Packet PO SCH (09:10)
[2018-03-02] MEDS: Senokot S 8.6-50 MG TAB PO SCH ×2 (09:10→19:52)
[2018-03-02] MEDS: Calcium Carbonate + Vit D 1 TAB PO SCH ×2 (09:10→19:52)
[2018-03-02] MEDS: Multivit, Chewable SF 1 TAB PO SCH (09:10)
[2018-03-02] MEDS: Fish Oil 1,000 MG CAP PO SCH (09:11)
[2018-03-02] MEDS: CRANBERRY 1000 MG PO SCH (09:38)
--- NOTE | 2018-03-02 10:26 | PDOC.PN ---
- Subjective Encounter Start Date: 03/02/18 Encounter Start Time: 08:30 Patient seen and examined. No new complaints. No overnight events - Objective Resuscitation Status: Resuscitation Status FULL:Full Resuscitation MAR Reviewed: Yes Vital Signs & Weight: Vital Signs (12 hours) Temp Pulse Resp BP BP Pulse Ox 03/02/18 09:08 72 166/77 H 03/02/18 08:28 97.6 F 72 15 166/77 H 96 03/02/18 03:46 98.7 F 71 18 154/69 H 96 03/01/18 23:28 98.7 F 68 18 159/75 H 95 Weight Admit Weight 129 lb Weight 129 lb I&O: 03/01/18 03/02/18 03/03/18 06:59 06:59 06:59 Intake Total 2420 850 Output Total 300 Balance 2120 850 Result Diagrams: 03/01/18 04:44 03/01/18 04:44 Phys Exam - Physical Examination Constitutional: NAD HEENT: PERRLA, moist MMs, sclera anicteric Neck: no JVD, supple Respiratory: no wheezing, no rales, no rhonchi Cardiovascular: RRR, no significant murmur, no rub Gastrointestinal: soft, non-tender, no distention, positive bowel sounds Musculoskeletal: no edema, pulses present Neurological: non-focal, normal sensation Lymphatic: no nodes Psychiatric: normal affect Skin: no rash, normal turgor Dx/Plan (1) SBO (small bowel obstruction) Code(s): K56.609 - UNSP INTESTNL OBST, UNSP TO PARTIAL VERSUS COMPLETE OBST Status: Resolved (2) Hypokalemia Code(s): E87.6 - HYPOKALEMIA Status: Resolved (3) Hypomagnesemia Code(s): E83.42 - HYPOMAGNESEMIA Status: Resolved (4) Dyslipidemia Code(s): E78.5 - HYPERLIPIDEMIA, UNSPECIFIED Status: Chronic (5) Hypertension Code(s): I10 - ESSENTIAL (PRIMARY) HYPERTENSION Status: Chronic (6) Hypothyroidism Code(s): E03.9 - HYPOTHYROIDISM, UNSPECIFIED Status: Chronic (7) PAF (paroxysmal atrial fibrillation) Code(s): I48.0 - PAROXYSMAL ATRIAL FIBRILLATION Status: Chronic (8) Dementia Code(s): F03.90 - UNSPECIFIED DEMENTIA WITHOUT BEHAVIORAL DISTURBANCE Status: Chronic (9) Anemia, macrocytic Code(s): D53.9 - NUTRITIONAL ANEMIA, UNSPECIFIED Status: Chronic (10) UTI (urinary tract infection) Status: Acute - Plan cont current plan of care, continue antibiotics, PT/OT, medical social consultant * continue rocephin * follow urine culture * will need placement * continue PT * tolerating current diet * medication reviewed as below * symptomatic treatment. Review of Systems - Review of Systems Other: not reliable due to her level of cognitive status - Medications/Allergies Allergies/Adverse Reactions: Allergies Allergy/AdvReac Type Severity Reaction Status Date / Time codeine Allergy Verified 07/19/14 13:17 iodine Allergy Verified 07/19/14 13:17 lisinopril Allergy Verified 07/19/14 13:17 losartan [Losartan] Allergy Verified 07/19/14 13:17 Sulfa (Sulfonamide Allergy Verified 07/19/14 13:17 Antibiotics) Medications: Current Medications Acetaminophen (Tylenol) 650 mg [place] Q4H PRN PRN Reason: Headache/Fever/Mild Pain (1-3) Acetaminophen (Tylenol) 1,000 mg PO Q6H PRN PRN Reason: Mild Pain (1-3) Acidophilus (Floranex) 1 tab PO DAILY [facility] Last Admin: 03/02/18 09:08 Dose: 1 tab Albuterol/Ipratropium (Duoneb) 3 ml NEB [id number] PRN PRN Reason: SOB &/or Wheezing Artificial Tears (Tears Renewed 15ml Bottle) 2 drop EA EYE PRN PRN PRN Reason: Dry Eyes Bisacodyl (Dulcolax) 10 mg [place] DAILYPRN PRN PRN Reason: Constipation Calcium/Vitamin D (Caltrate 600 + Vit D) 2 tab PO BID [facility] Last Admin: 03/02/18 09:10 Dose: 2 tab Coenzyme Q10 (Coenzyme Q10) 200 mg PO DAILY [facility] Last Admin: 03/02/18 09:09 Dose: 200 mg Cyanocobalamin (Vitamin B-12) 1,000 mcg PO DAILY [facility] Last Admin: 03/02/18 09:08 Dose: 1,000 mcg Enoxaparin Sodium (Lovenox) 40 mg SC 0900 [facility] Last Admin: 03/02/18 09:10 Dose: 40 mg Fish Oil (Fish Oil) 1,000 mg PO DAILY [facility] Last Admin: 03/02/18 09:11 Dose: 1,000 mg Folic Acid (Folvite) 1 mg PO DAILY [facility] Last Admin: 03/02/18 09:09 Dose: 1 mg Guaifenesin (Robitussin Sf) 200 mg PO Q4H PRN PRN Reason: Cough Hydralazine HCl (Apresoline) 10 mg SLOW IVP Q4H PRN PRN Reason: SBP Greater Than 170 Last Admin: 03/01/18 17:14 Dose: 10 mg Potassium Chloride/Dextrose/Sod Cl (D5 1/2 Ns W/20 Meq Kcl) 1,000 mls @ 50 mls/ hr IV .Q20H [facility] Last Admin: 03/02/18 09:08 Dose: 1,000 mls Ceftriaxone Sodium 1 gm/ (Sodium Chloride) 100 mls @ 200 mls/hr IVPB Q24HR [facility] Last Admin: 03/01/18 16:42 Dose: 100 mls Labetalol HCl (Normodyne) 20 mg SLOW IVP Q4H PRN PRN Reason: SBP Greater Than 170 Last Admin: 03/01/18 20:35 Dose: 20 mg Levothyroxine Sodium (Synthroid) 50 mcg PO 0600 [facility] Last Admin: 03/02/18 06:01 Dose: 50 mcg Loratadine (Claritin) 10 mg PO DAILYPRN PRN PRN Reason: Sinus Symptoms Metoprolol Succinate (Toprol Xl) 25 mg PO DAILY [facility] Last Admin: 03/02/18 09:10 Dose: 25 mg Mineral Oil/White Petrolatum (Eucerin Cream) 0 gm TOP BIDPRN PRN PRN Reason: Dry Skin Morphine Sulfate (Morphine) 2 mg SLOW IVP Q2H PRN PRN Reason: Pain Multivitamins (Multivit, Chewable Sf) 1 tab PO DAILY [facility] Last Admin: 03/02/18 09:10 Dose: Not Given Ondansetron HCl (Zofran) 4 mg IVP Q6H PRN PRN Reason: Nausea/Vomiting Last Admin: 02/26/18 20:06 Dose: 4 mg Ondansetron HCl (Zofran Odt) 4 mg SL Q6H PRN PRN Reason: Nausea/Vomiting Pantoprazole Sodium (Protonix) 40 mg PO DAILY [facility] Last Admin: 03/02/18 09:10 Dose: 40 mg Polyethylene Glycol (Miralax) 17 gm PO DAILY [facility] Last Admin: 03/02/18 09:10 Dose: Not Given Senna/Docusate Sodium (Senokot S) 1 tab PO BID [facility] Last Admin: 03/02/18 09:10 Dose: 1 tab Simvastatin (Zocor) 10 mg PO HS [facility] Last Admin: 03/01/18 20:40 Dose: 10 mg Sodium Chloride ([place] Nasal [place] 0.65%) 0 ml EA NARE QIDPRN PRN PRN Reason: Nasal Congestion Sotalol HCl (Betapace) 40 mg PO BID [facility] Last Admin: 03/02/18 09:08 Dose: 40 mg Throat Lozenges (Cepastat Lozenges) 1 danita PO Q2H PRN PRN Reason: Sore Throat
--- NOTE | 2018-03-02 12:47 | PRG ---
DATE OF SERVICE: 03/02/2018 SUBJECTIVE: The patient was seen briefly this morning and noted that she tolerated her regular diet overnight and she continued to have bowel function. From our standpoint, we will sign off as her marti pected small-bowel obstruction has resolved. We may be reconsulted as needed.
[2018-03-02] MEDS: Simvastatin 5 MG TAB PO SCH (19:51)
[2018-03-03] MEDS: Levothyroxine Sodium 50 MCG TAB PO SCH (05:04)
[2018-03-03] MEDS: Enoxaparin Sodium 40 MG/0.4 ML SYRINGE SC SCH (08:13)
[2018-03-03] MEDS: Multivit, Chewable SF 1 TAB PO SCH (08:13)
[2018-03-03] MEDS: Ubidecarenone 50 MG CAP PO SCH (08:14)
[2018-03-03] MEDS: Lactinex Tablet PO SCH (08:14)
[2018-03-03] MEDS: Folic Acid 1 MG TAB PO SCH (08:14)
[2018-03-03] MEDS: Calcium Carbonate + Vit D 1 TAB PO SCH (08:15)
[2018-03-03] MEDS: Fish Oil 1,000 MG CAP PO SCH (08:15)
[2018-03-03] MEDS: Cyanocobalamin (Vitamin B-12) 1,000 MCG TAB PO SCH (08:15)
[2018-03-03] MEDS: Sotalol HCl 80 MG TAB PO SCH (08:15)
[2018-03-03] MEDS: Senokot S 8.6-50 MG TAB PO SCH (08:16)
[2018-03-03] MEDS: Polyethylene Glycol 3350 17 GM Packet PO SCH (08:16)
[2018-03-03 10:41] VITALS: TEMP 98.4
--- NOTE | 2018-03-03 11:30 | PRG ---
DATE OF SERVICE: 03/03/2018 OBJECTIVE: Ms. Barrientos is an 82-year-old woman who was admitted 5 days ago with abdominal pain and radiographic studies which was suggestive for small-bowel obstruction. I was asked to evaluate the p atient to exclude need for surgery. The patient was managed conservatively with initial bowel rest. Once bowel function returned, marked by bowel movements and passage of flatus clear liquid diet was initiated which the patient continues to tolerate at present. She is tolerating general diet. She is having multiple bowel movements. S he reports no abdominal pain this morning. PHYSICAL EXAMINATION: VITAL SIGNS: This morning includes blood pressure 145/85, pulse 65, respiratory rate is 18, temperat ure is 98.4 degrees Fahrenheit, oxygen saturation 96% on room air. ABDOMEN: Soft, nontender, nondistended. NEUROLOGIC: Reveals no focal deficits present. LABORATORY DATA: Her last CBC was from 03/01/2018, at which time the white blood cell count was note d at 6400 with hemoglobin and hematocrit 10.8 and 33.1 respectively. Platelet count 127,000. IMPRESSION: 1. Resolved acute small-bowel obstruction. 2. There is no acute surgical indication for this patient at this time. The patient is certainly stable for discharge to home at the discretion of the primary service. [facility] will sign off and be available to reevaluate the patient on demand.
--- NOTE | 2018-03-03 13:23 | DIS ---
PRIMARY CARE PHYSICIAN: [facility] Call admission. DATE OF ADMISSION: 02/26/2018 DATE OF DISCHARGE: 03/03/2018 DISCHARGE DISPOSITION: Home with home health. PRIMARY DISCHARGE DIAGNOSES: 1. Small-bowel obstruction, resolved. 2. Hypomagnesemia, corrected. 3. Hypokalemia, corrected. 4. Urinary tract infection. SECONDARY DISCHARGE DIAGNOSES: Macrocytic anemia, dementia, dyslipidemia, hypertension, hypothyroidism, paroxysmal atrial fibrillation. PRIMARY PROCEDURE/OPERATION: None. RADIOLOGICAL INVESTIGATION: X-ray of abdomen on admission showed small-bowel obstruction. Small bowel x-ray showed small-bowel obstruction. Subsequent repeat abdomen x-ray showed nonspecific bowel gas pattern. CT brain did not show any acute process. SIGNIFICANT LABORATORY DATA: WBC 6.4, hemoglobin 13.8, platelets 127. Sodium 137, potassium 4.0, BUN 8, creatinine 0.59, calcium 8.2. LFT normal, lipase less than 4. Urinalysis suggestive of UTI. Urine culture grew Pseudomonas and E. coli. DISCHARGE MEDICATIONS: Zofran 4 mg p.o. q.8 hourly p.r.n., probiotic 1 capsule daily, calcium with vitamin D two tablets p.o. b.i.d., cranberry 1000 mg p.o. daily, vitamin B12 1000 mcg p.o. daily, ibuprofen 200 mg p.o. t.i.d. p.r.n., Synthroid 50 mcg p.o. daily, Toprol-XL 25 mg p.o. daily, multivitamin 1 tablet p.o. daily, fish oil 1 capsule p.o. daily, Protonix 40 mg p.o. daily, Zocor 10 mg p.o. at bedtime, sotalol 40 mg p.o. b.i.d., Coenzyme Q10 200 mg p.o. daily, tramadol 50 mg q.8 hourly p.r.n., aspirin 81 mg p.o. daily, folic acid 1 mg p.o. daily, levofloxacin 500 mg p.o. daily for 5 more days, MiraLax 17 g p.o. daily. CONTRAINDICATIONS: None. CODE STATUS: DNR. INPATIENT PHLEBOTOMIST ASSOCIATE: Dr. Cyr was following while in hospital. TEST RESULTS PENDING ON DISCHARGE: None. ALLERGIES: CODEINE, IODINE, LISINOPRIL, LOSARTAN, SULFA. DISCHARGE PLAN: Post hospital, the patient is discharged to home with home health. She will follow up with Dr. Cyr as instructed. HOSPITAL COURSE: An 82-year-old female with above-mentioned medical problem who was admitted by me on February 26, 2018. Please see my HPI for further details. The patient was having abdominal pain, nausea, vomiting, and she was not passing any gas or bowel movement. In the emergency room, x-ray of abdomen showed small-bowel obstruction. The patient was admitted in Medicine Service. We consulted Dr. Cyr while in hospital. We did small bowel x-ray that also showed small-bowel obstruction. The patient was treated conservatively with NG tube with low intermittent suction. With conservative therapy, the patient's small-bowel obstruction completely resolved. Repeat x-ray of abdomen showed no evidence of obstruction. The patient was started on liquid diet and patient was tolerating diet very well without any problem and while in hospital, she also had several bowel movements. She was found with urinary tract infection, which was treated with Rocephin while in hospital and on discharge, we changed to p.o. levofloxacin. Initially, there was plan to send her to rehab, but to let her go home with home health and that is why with the help of case finishing machine adjuster, we arranged her previous home health. While in hospital, we also corrected her abnormal electrolytes. Her current urine culture result is pending, but the patient has clinically responded to antibiotic therapy and that is why all new medication prescriptions sent to her Pharmacy. The patient will follow up with Dr. Cyr and her primary care physician in 1 week. The patient is seen and examined at bedside today. Plan of care discussed with the patient and her at bedside. All review of system reviewed and negative. The patient's physical examination unchanged and she is hemodynamically stable. MTDD
[2018-03-03 14:54] VITALS: BP 162/73
== END 2018-03-03 10:37 | disposition home health service (06) | DRG 389 ==
LOC: ERS 10:13 → SURG A 15:43
PROVIDERS: ADMIT Internal Medicine; ATTEND Internal Medicine
PROC: 0D9670Z Drainage of Stomach with Drainage Device, Via Natural or Artificial Opening (ICD-10-PCS; principal; 2018-02-26)
DX: K56.609 Unspecified intestinal obstruction, unspecified as to partial versus complete obstruction (principal); N39.0 Urinary tract infection, site not specified; E87.6 Hypokalemia; E83.42 Hypomagnesemia; E78.5 Hyperlipidemia, unspecified; I10 Essential (primary) hypertension; E03.9 Hypothyroidism, unspecified; I48.0 Paroxysmal atrial fibrillation; F03.90 Unspecified dementia, unspecified severity, without behavioral disturbance, psychotic disturbance, mood disturbance, and anxiety; D53.9 Nutritional anemia, unspecified; B96.20 Unspecified Escherichia coli [E. coli] as the cause of diseases classified elsewhere; Z95.0 Presence of cardiac pacemaker; K21.9 Gastro-esophageal reflux disease without esophagitis; Z88.2 Allergy status to sulfonamides; Z88.5 Allergy status to narcotic agent; Z88.8 Allergy status to other drugs, medicaments and biological substances; Z91.048 Other nonmedicinal substance allergy status; Z79.82 Long term (current) use of aspirin; L89.159 Pressure ulcer of sacral region, unspecified stage
CPT/HCPCS: 36415; 70450; 74018; 74022; 74250; 80048; 80053; 81001; 83605; 83690; 83735; 84100; 85025; 87077; 87086; 87186; 96374; G8978-GP-CK; G8979-GP-CI; G8987-GO-CL; G8988-GO-CJ; J0360; J0696; J1200; J1650; J2060; J2270; J2405; J3475; J7050; S0028

== ENCOUNTER 2018-03-29 05:12 | Inpatient (IN) | payer MEDICARE, BC ==
[2018-03-29 06:20] LABS: #Basophils 0.1 thou/uL (0.0-0.2); #Eosinphils 0.2 thou/uL (0.0-0.7); #Lymphocytes 1.7 thou/uL (1.20-3.40); #Neutrophils 3.6 thou/uL (1.40-6.50); %Basophils 0.9 % (0.0-1.0); %Lymphocytes 25.6 % (21.0-51.0); %Monocytes 14.9 % (0.0-10.0); %Neutrophils 55.6 % (42.0-75.0); Hemoglobin 13.1 g/dL (12.0-16.0); Mean Corpuscular HGB CONC 32.7 g/dL (32.0-36.0); Mean Corpuscular Hemoglobin 31.3 pg (27.0-31.0); Mean Corpuscular Volume 95.5 fL (78.0-98.0); Mean Platelet Volume 6.8 fL (7.4-10.4); Platelet Count 258 thou/uL (130-400); RBC Distribution Width 13.4 % (11.5-14.5); Red Blood Cell (RBC) Count 4.17 mill/uL (4.20-5.40); White Blood Cell (WBC) Count 6.5 thou/uL (4.8-10.8)
[2018-03-29 06:20] LABS: Bilirubin Negative (Negative); Blood, Urine Negative (Negative); Clarity TURBID (Clear); Glucose, Urine (Dipstick) Negative (Negative); Leukocyte Large (Negative); Nitrite Positive (Negative); Protein, Urine (Dipstick) 30 mg/dL (Neg-Trace); Specific Gravity, Urine 1.017 (1.002-1.036); pH, Urine 8.5 (5.0-9.0)
[2018-03-29 06:22] LABS: Bacteria/HPF 4+ HPF (None Seen); Hyaline Casts/LPF 4-6 HYALINE CAST LPF (0-3 Hyaline); Pathc Cast-AUWi Flag 0.21 (0-2.49); Squamous Epithelial 0-3 HPF (0-3)
[2018-03-29 06:22] LABS: PTT 28.5 SEC (22.9-36.1); Prothrombin Time 12.8 SEC (12.0-14.7)
[2018-03-29 06:35] LABS: ALT (SGPT) 9 U/L (8-55); AST (SGOT) 11 U/L (5-34); Albumin 3.3 g/dL (3.4-4.8); Alkaline Phosphatase 55 U/L (40-150); Anion Gap 13 mmol/L (10-20); BUN (Urea Nitrogen) 12 mg/dL (9.8-20.1); Bilirubin, Total 2.8 mg/dL (0.2-1.2); Calc. Creatinine Clearance 0 mL/min (70-130); Calcium 9.1 mg/dL (7.8-10.44); Carbon Dioxide 30 mmol/L (23-31); Chloride 100 mmol/L (98-107); Estimated GFR-MDRD 86; Globulin 2.5 g/dL (2.4-3.5); Glucose 84 mg/dL (83-110); Potassium 3.5 mmol/L (3.5-5.1); Protein, Total 5.8 g/dL (6.0-8.3); Sodium 139 mmol/L (136-145)
[2018-03-29] MEDS ORDERED: Bisacodyl 10 MG SUPP PR PRN (07:38)
[2018-03-29] MEDS ORDERED: Senokot S 8.6-50 MG TAB PO PRN (07:38)
[2018-03-29] MEDS ORDERED: Diabetic Tussin 200 MG/10 ML UDCUP PO PRN (07:38)
[2018-03-29] MEDS ORDERED: Calcium Carbonate 500 MG ChewTAB PO PRN (07:38)
[2018-03-29] MEDS ORDERED: Loperamide HCl 2 MG CAP PO PRN (07:38)
[2018-03-29] MEDS ORDERED: Bisacodyl 5 MG TAB PO PRN (07:38)
[2018-03-29] MEDS ORDERED: Artificial Tears 18 DROP/0.9 ML EA EYE PRN (07:38)
[2018-03-29] MEDS ORDERED: Acetaminophen 325 MG TAB PO PRN (07:38)
[2018-03-29] MEDS ORDERED: Sodium Chloride 0.65% Nasal 44 ML BOT EA NARE PRN (07:38)
[2018-03-29] MEDS ORDERED: Cepastat Lozenges 1 LOZ PO PRN (07:38)
[2018-03-29] MEDS ORDERED: Eucerin (Mineral Oil/Petrolatum,White) 30 gm Jar TOP PRN (07:38)
[2018-03-29] MEDS ORDERED: hydrALAZINE 20 MG/ML VIAL SLOW IVP PRN (07:38)
[2018-03-29] MEDS ORDERED: Metoclopramide HCl 10 MG/2 ML VIAL IVP PRN (07:38)
[2018-03-29] MEDS ORDERED: Ondansetron ODT 4 MG TAB PO PRN (07:56)
[2018-03-29] MEDS ORDERED: Ondansetron PF 4 MG/2 ML Vial IVP PRN (07:56)
[2018-03-29] MEDS: cefTRIAXone\\ROCEPHIN 1 GM in Sodium Chloride 0.9% 100 ML IVPB SCH (08:13)
[2018-03-29] MEDS: Famotidine 20 MG TAB PO SCH ×2 (08:15→22:18)
[2018-03-29] MEDS: Enoxaparin Sodium 40 MG/0.4 ML SYRINGE SC SCH (08:15)
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
--- NOTE | 2018-03-29 09:57 | HP ---
PRIMARY CARE PHYSICIAN: [facility] Call Admission. REASON FOR ADMISSION: Altered mental status, urinary tract infection. HISTORY OF PRESENT ILLNESS: An 82-year-old female who has underlying Alzheimer type of dementia, who was brought to emergency room for evaluation of increasing confusion from her baseline. The patient was more altered than her baseline and that is why the patient was sent to emergency room for evaluation. This patient had a CT of brain, which was unremarkable. This patient is found with a urinary tract infection. This patient was initially evaluated at [place] and subsequently, she was transferred to our hospital. Her chest x-ray is also unremarkable. This patient is not able to provide any history. The patient has urinary tract infection and she is given Rocephin, IV fluid in the emergency room and subsequently, we are admitting this patient to hospital for further evaluation. REVIEW OF SYSTEMS: All review of system tried to review with the patient, but unable to review at this point because of her altered mental status as well as baseline cognitive deficit. PAST MEDICAL HISTORY: Hypertension, gastroesophageal reflux disease, hypothyroidism, dyslipidemia, history of small-bowel obstruction, history of subarachnoid hemorrhage, history of endometrial cancer, paroxysmal atrial fibrillation. PAST SURGICAL HISTORY: Tonsillectomy, small bowel obstruction repaired by surgery in the past, carotid endarterectomy, cataract surgery, cholecystectomy, hysterectomy, right hip repair, rotator cuff repair, pacemaker placement, hernia repair x3. PAST PSYCHIATRIC HISTORY: Reviewed and negative. SOCIAL HISTORY: The patient is , lives at home with her . No history of tobacco, alcohol, or illicit drug abuse. FAMILY HISTORY: No family history of coronary artery disease, stroke, or cancer. ALLERGIES: CODEINE SULFATE, IODINE, LISINOPRIL, LOSARTAN, SULFA DRUGS. CURRENT HOME MEDICATIONS: 1. Aspirin 81 mg p.o. daily. 2. Synthroid 50 mcg daily. 3. Calcium with vitamin D 2 tablets twice daily. 4. Coenzyme Q10 one tablet daily. 5. Potassium 1 tablet daily. 6. Magnesium 1 tablet daily. 7. Toprol-XL 25 mg twice daily. 8. Prilosec 10 mg daily. 9. Zocor 10 mg p.o. daily. 10. Sotalol 40 mg p.o. b.i.d. EMERGENCY ROOM COURSE: The patient is given Rocephin IV fluid at [facility]. PHYSICAL EXAMINATION: VITAL SIGNS: On arrival, blood pressure 181/79, pulse 84, respiratory rate 16, temperature 97.6, saturation 95% on room air. Weight 54.4 kg. GENERAL: The patient is currently alert, awake, confused. No obvious acute distress. HEENT: Head; normocephalic, atraumatic. Eyes; pupils round, reactive to light. Extraocular muscle intact. ENT; oropharynx within normal limits. Moist mucous membranes. No oral lesion. No pharyngeal erythema. No exudate. NECK: Supple. No JVD. No thyromegaly. No carotid bruit. No jugular venous distention. LUNGS: Clear to auscultation without any rhonchi or rales. CARDIAC: S1 and S2 appears regular. No murmur. No gallop. No rub. ABDOMEN: Soft. Bowel sounds present. Nontender. Nondistended. No organomegaly. No mass. No suprapubic tenderness. BACK: Unremarkable. No CVA tenderness. EXTREMITIES: Upper extremity; passive movement of all joints are normal. Lower extremity, no edema. Good distal pulsation. SKIN: No skin rash. HEMATOLOGIC: No lymphadenopathy. NEUROLOGIC: The patient is alert, awake, follows simple commands. No focal neurological deficit noted. SIGNIFICANT LABORATORY DATA: CT brain based on my review, no acute intracranial process. Chest x-ray based on my review, no acute cardiopulmonary process. CBC; WBC 6.5, hemoglobin 13.1, platelet 258. INR 1.0. BMP; sodium 139, potassium 3.5, chloride 100, carbon dioxide 30, anion gap 13, BUN 12, creatinine 0.66, glucose 84, calcium 9.1. LFT; AST 11, ALT 9, alkaline phosphatase 55, albumin 3.3. Urinalysis, suggestive urinary tract infection. ASSESSMENT: Impression: 1. Acute encephalopathy, likely due to urinary tract infection. 2. Urinary tract infection. 3. History of Alzheimer type of dementia with baseline cognitive deficit. 4. History of recurrent urinary tract infection. 5. Paroxysmal atrial fibrillation. 6. Hypertension. 7. Dyslipidemia. 8. Gastroesophageal reflux disease. 9. Physical deconditioning. PLAN: The patient is already full admitted from last night. We will continue Rocephin 1 g q.24 hours. We will also add levofloxacin 500 mg IV daily. Deep venous thrombosis prophylaxis with Lovenox 40 mg subcu daily, GI prophylaxis with Pepcid 20 mg p.o. b.i.d. Once we verify her home medications, we will resume selected home medication. We will follow up on urine culture result and based on culture result, we will change to antibiotic therapy accordingly. While in hospital, the patient will need PT/OT evaluation. Supportive care will be given. We are expecting the patient's stay in hospital 24 to 48 hours. Upon stabilization, we will consider discharging her home. CODE STATUS: The patient is full code at this point. The patient's is surrogate decision maker. Job ID: [id number]
--- NOTE | 2018-03-29 10:10 | RAD ---
PORTABLE CHEST ONE VIEW: 03/29/2018 6:18 a.m. HISTORY: Altered mental status. COMPARISON: Exam from the previous day. FINDINGS: The heart size is normal. The aorta is tortuous. A left-sided pacemaker device remains in place. N o focal areas of consolidation, pneumothorax, john pulmonary edema, or pleural effusions are seen. Postop changes in the right shoulder are redemonstrated. IMPRESSION: No acute process. POS: RICA
[2018-03-29] MEDS: Nitrofurantoin Monohyd/M-Cryst 100 MG CAP PO SCH (22:18)
[2018-03-29] MEDS: Simvastatin 5 MG TAB PO SCH (22:18)
[2018-03-29] MEDS: Sotalol HCl 80 MG TAB PO SCH (22:19)
[2018-03-30] MEDS: Nitrofurantoin Monohyd/M-Cryst 100 MG CAP PO SCH (08:56)
[2018-03-30] MEDS: cefTRIAXone\\ROCEPHIN 1 GM in Sodium Chloride 0.9% 100 ML IVPB SCH (08:56)
[2018-03-30] MEDS ORDERED: Aspirin 81 mg Enteric Coated Tablet PO SCH (09:00)
[2018-03-30] MEDS ORDERED: traMADol HCl 50 MG TAB PO PRN (09:02)
--- NOTE | 2018-03-30 09:03 | PDOC.PN ---
- Subjective Encounter Start Date: 03/30/18 Encounter Start Time: 07:50 -: old records requested/rev Patient seen and examined. last night pt had hallucination, she was agitated - Objective Resuscitation Status - Order Detail: 03/30/18 09:00 Resuscitation Status Routine Resuscitation Status: DNAR: NO Resuscitation Discussed with: discussed with bedside MAR Reviewed: Yes Vital Signs & Weight: Vital Signs (12 hours) Temp Pulse Resp BP BP Pulse Ox 03/30/18 07:26 97.5 F L 77 16 143/73 H 97 03/29/18 22:19 69 147/73 H Weight Weight 257 lb 15.053 oz Result Diagrams: 03/29/18 05:58 03/29/18 06:02 Phys Exam - Physical Examination Constitutional: NAD HEENT: PERRLA, moist MMs, sclera anicteric Neck: no JVD, supple Respiratory: no wheezing, no rales, no rhonchi Cardiovascular: RRR, no significant murmur, no rub Gastrointestinal: soft, non-tender, no distention, positive bowel sounds Musculoskeletal: no edema, pulses present Neurological: non-focal, normal sensation Lymphatic: no nodes Psychiatric: normal affect Skin: no rash, normal turgor Dx/Plan (1) UTI (urinary tract infection) Status: Acute (2) Anemia, macrocytic Code(s): D53.9 - NUTRITIONAL ANEMIA, UNSPECIFIED Status: Chronic (3) Dementia Code(s): F03.90 - UNSPECIFIED DEMENTIA WITHOUT BEHAVIORAL DISTURBANCE Status: Chronic Qualifiers: Dementia type: Alzheimer's disease Dementia behavioral disturbance: with behavioral disturbance (4) Dyslipidemia Code(s): E78.5 - HYPERLIPIDEMIA, UNSPECIFIED Status: Chronic (5) Hypertension Code(s): I10 - ESSENTIAL (PRIMARY) HYPERTENSION Status: Chronic (6) Hypothyroidism Code(s): E03.9 - HYPOTHYROIDISM, UNSPECIFIED Status: Chronic (7) PAF (paroxysmal atrial fibrillation) Code(s): I48.0 - PAROXYSMAL ATRIAL FIBRILLATION Status: Chronic (8) Physical deconditioning Code(s): R53.81 - OTHER MALAISE Status: Chronic - Plan cont current plan of care, plan discussed w/ family, 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 Review of Systems - Review of Systems Other: not reliable due to her advanced dementia - Medications/Allergies Allergies/Adverse Reactions: Allergies Allergy/AdvReac Type Severity Reaction Status Date / Time iodine Allergy Severe Verified 03/29/18 08:50 Sulfa (Sulfonamide Allergy Severe Verified 03/29/18 08:50 Antibiotics) codeine Allergy Unknown Verified 03/29/18 08:50 lisinopril Allergy Unknown Verified 03/29/18 08:50 losartan [Losartan] Allergy Unknown Verified 03/29/18 08:50 Medications: Current Medications Acetaminophen (Tylenol) 650 mg PO Q4H PRN PRN Reason: Headache/Fever/Mild Pain (1-3) Artificial Tears (Tears Naturale) 2 drop EA EYE PRN PRN PRN Reason: Dry Eyes Aspirin (Ecotrin) 81 mg PO DAILY [facility] Bisacodyl (Dulcolax) 10 mg PO DAILYPRN PRN PRN Reason: Constipation Bisacodyl (Dulcolax) 10 mg [place] DAILYPRN PRN PRN Reason: Constipation Calcium Carbonate (Tums) 1,000 mg PO Q4H PRN PRN Reason: Heartburn or Indigestion Cyanocobalamin (Vitamin B-12) 1,000 mcg PO DAILY [facility] Enoxaparin Sodium (Lovenox) 40 mg SC 0900 [facility] Last Admin: 03/29/18 08:15 Dose: 40 mg Famotidine (Pepcid) 20 mg PO BID [facility] Last Admin: 03/29/18 22:18 Dose: 20 mg Fish Oil (Fish Oil) 1,000 mg PO DAILY [facility] Folic Acid (Folvite) 1 mg PO DAILY [facility] Guaifenesin (Robitussin Sf) 200 mg PO Q4H PRN PRN Reason: Cough Hydralazine HCl (Apresoline) 10 mg SLOW IVP Q4H PRN PRN Reason: SBP > 180 and HR < 70 Ceftriaxone Sodium 1 gm/ (Sodium Chloride) 100 mls @ 200 mls/hr IVPB 0800 [facility] Last Admin: 03/30/18 08:56 Dose: 100 mls Loperamide HCl (Imodium) 2 mg PO PRN PRN PRN Reason: Diarrhea/Loose Stools Metoclopramide HCl (Reglan) 10 mg IVP Q6H PRN PRN Reason: Nausea/Vomiting Metoprolol Succinate (Toprol Xl) 25 mg PO DAILY [facility] Mineral Oil/White Petrolatum (Eucerin Cream) 0 gm TOP BIDPRN PRN PRN Reason: Dry Skin Multivitamins (Multivit, Chewable Sf) 1 tab PO DAILY [facility] Nitrofurantoin Macrocrystals (Macrobid) 100 mg PO BID [facility] Last Admin: 03/30/18 08:56 Dose: 100 mg Pantoprazole Sodium (Protonix) 40 mg PO DAILY [facility] Polyethylene Glycol (Miralax) 17 gm PO DAILY [facility] Quetiapine Fumarate (Seroquel) 25 mg PO BID [facility] Quetiapine Fumarate (Seroquel) 25 mg PO ONE [facility] Senna/Docusate Sodium (Senokot S) 2 tab PO BID PRN PRN Reason: Constipation Simvastatin (Zocor) 10 mg PO HS [facility] Last Admin: 03/29/18 22:18 Dose: 10 mg Sodium Chloride ([place] Nasal [place] 0.65%) 0 ml EA NARE QIDPRN PRN PRN Reason: Nasal Congestion Sotalol HCl (Betapace) 40 mg PO BID [facility] Last Admin: 03/29/18 22:19 Dose: 40 mg Throat Lozenges (Cepastat Lozenges) 1 danita PO Q2H PRN PRN Reason: Sore Throat
[2018-03-30] MEDS: Famotidine 20 MG TAB PO SCH (09:23)
[2018-03-30] MEDS: Fish Oil 1,000 MG CAP PO SCH (09:23)
[2018-03-30] MEDS: Cyanocobalamin (Vitamin B-12) 1,000 MCG TAB PO SCH (09:23)
[2018-03-30] MEDS: Enoxaparin Sodium 40 MG/0.4 ML SYRINGE SC SCH (09:23)
[2018-03-30] MEDS: Folic Acid 1 MG TAB PO SCH (09:23)
[2018-03-30] MEDS: Multivit, Chewable SF 1 TAB PO SCH (09:23)
[2018-03-30 10:06] LABS: #Basophils 0.1 thou/uL (0.0-0.2); #Eosinphils 0.2 thou/uL (0.0-0.7); #Lymphocytes 1.5 thou/uL (1.20-3.40); #Neutrophils 6.3 thou/uL (1.40-6.50); %Basophils 1.1 % (0.0-1.0); %Eosinophils 2.1 % (0.0-10.0); %Lymphocytes 16.3 % (21.0-51.0); %Monocytes 10.9 % (0.0-10.0); %Neutrophils 69.6 % (42.0-75.0); Mean Corpuscular HGB CONC 33.2 g/dL (32.0-36.0); Mean Corpuscular Hemoglobin 31.3 pg (27.0-31.0); Mean Corpuscular Volume 94.3 fL (78.0-98.0); Mean Platelet Volume 7.4 fL (7.4-10.4); Platelet Count 246 thou/uL (130-400); RBC Distribution Width 13.5 % (11.5-14.5); Red Blood Cell (RBC) Count 4.14 mill/uL (4.20-5.40); White Blood Cell (WBC) Count 9.1 thou/uL (4.8-10.8)
[2018-03-30 10:27] LABS: Anion Gap 14 mmol/L (10-20); BUN (Urea Nitrogen) 9 mg/dL (9.8-20.1); Calc. Creatinine Clearance 134 mL/min (70-130); Calcium 9.3 mg/dL (7.8-10.44); Carbon Dioxide 26 mmol/L (23-31); Chloride 99 mmol/L (98-107); Estimated GFR-MDRD Greater than 90; Glucose 149 mg/dL (83-110); Potassium 3.5 mmol/L (3.5-5.1); Sodium 135 mmol/L (136-145)
[2018-03-30] MEDS: Sotalol HCl 80 MG TAB PO SCH (11:24)
[2018-03-30] MEDS: Polyethylene Glycol 3350 17 GM Packet PO SCH (12:28)
[2018-03-31] MEDS: Sotalol HCl 80 MG TAB PO SCH ×3 (01:23→20:32)
[2018-03-31] MEDS: Famotidine 20 MG TAB PO SCH ×3 (01:23→20:33)
[2018-03-31] MEDS: Nitrofurantoin Monohyd/M-Cryst 100 MG CAP PO SCH ×3 (01:23→20:33)
[2018-03-31] MEDS: Simvastatin 5 MG TAB PO SCH ×2 (01:23→20:33)
--- NOTE | 2018-03-31 09:52 | PDOC.PN ---
- Subjective Encounter Start Date: 03/31/18 Encounter Start Time: 07:50 Patient seen and examined. No overnight events - Objective Resuscitation Status - Order Detail: 03/30/18 09:00 Resuscitation Status Routine Resuscitation Status: DNAR: NO Resuscitation Discussed with: discussed with bedside MAR Reviewed: Yes Vital Signs & Weight: Vital Signs (12 hours) Temp Pulse Resp BP Pulse Ox 03/31/18 07:44 98.4 F 80 18 114/66 98 03/31/18 01:23 79 Weight Weight 257 lb 15.053 oz Result Diagrams: 03/30/18 09:54 03/30/18 09:54 Phys Exam - Physical Examination Constitutional: NAD HEENT: PERRLA, moist MMs, sclera anicteric Neck: no JVD, supple Respiratory: no wheezing, no rales, no rhonchi Cardiovascular: RRR, no significant murmur, no rub Gastrointestinal: soft, non-tender, no distention, positive bowel sounds Musculoskeletal: no edema, pulses present Neurological: non-focal, normal sensation, moves all 4 limbs Lymphatic: no nodes Psychiatric: normal affect, A&O x 3 Skin: no rash, normal turgor Dx/Plan (1) UTI (urinary tract infection) Status: Acute (2) Anemia, macrocytic Code(s): D53.9 - NUTRITIONAL ANEMIA, UNSPECIFIED Status: Chronic (3) Dementia Code(s): F03.90 - UNSPECIFIED DEMENTIA WITHOUT BEHAVIORAL DISTURBANCE Status: Chronic Qualifiers: Dementia type: Alzheimer's disease Dementia behavioral disturbance: with behavioral disturbance (4) Dyslipidemia Code(s): E78.5 - HYPERLIPIDEMIA, UNSPECIFIED Status: Chronic (5) Hypertension Code(s): I10 - ESSENTIAL (PRIMARY) HYPERTENSION Status: Chronic (6) Hypothyroidism Code(s): E03.9 - HYPOTHYROIDISM, UNSPECIFIED Status: Chronic (7) PAF (paroxysmal atrial fibrillation) Code(s): I48.0 - PAROXYSMAL ATRIAL FIBRILLATION Status: Chronic (8) Physical deconditioning Code(s): R53.81 - OTHER MALAISE Status: Chronic - Plan cont current plan of care, continue antibiotics, social director * case worker to arrange care home placement * medication reviewed as below * symptomatic treatment * continue rocephin and macrobid * supportive care. Review of Systems - Review of Systems Other: not reliable due to advanced dementia - Medications/Allergies Allergies/Adverse Reactions: Allergies Allergy/AdvReac Type Severity Reaction Status Date / Time iodine Allergy Severe Verified 03/29/18 08:50 Sulfa (Sulfonamide Allergy Severe Verified 03/29/18 08:50 Antibiotics) codeine Allergy Unknown Verified 03/29/18 08:50 lisinopril Allergy Unknown Verified 03/29/18 08:50 losartan [Losartan] Allergy Unknown Verified 03/29/18 08:50 Medications: Current Medications Acetaminophen (Tylenol) 650 mg PO Q4H PRN PRN Reason: Headache/Fever/Mild Pain (1-3) Artificial Tears (Tears Naturale) 2 drop EA EYE PRN PRN PRN Reason: Dry Eyes Aspirin (Aspirin) 325 mg PO DAILY [facility] Bisacodyl (Dulcolax) 10 mg PO DAILYPRN PRN PRN Reason: Constipation Bisacodyl (Dulcolax) 10 mg [place] DAILYPRN PRN PRN Reason: Constipation Calcium Carbonate (Tums) 1,000 mg PO Q4H PRN PRN Reason: Heartburn or Indigestion Cyanocobalamin (Vitamin B-12) 1,000 mcg PO DAILY [facility] Last Admin: 03/30/18 09:23 Dose: Not Given Enoxaparin Sodium (Lovenox) 40 mg SC 0900 [facility] Last Admin: 03/30/18 09:23 Dose: Not Given Famotidine (Pepcid) 20 mg PO BID [facility] Last Admin: 03/31/18 01:23 Dose: Not Given Fish Oil (Fish Oil) 1,000 mg PO DAILY [facility] Last Admin: 03/30/18 09:23 Dose: Not Given Folic Acid (Folvite) 1 mg PO DAILY [facility] Last Admin: 03/30/18 09:23 Dose: Not Given Guaifenesin (Robitussin Sf) 200 mg PO Q4H PRN PRN Reason: Cough Hydralazine HCl (Apresoline) 10 mg SLOW IVP Q4H PRN PRN Reason: SBP > 180 and HR < 70 Ceftriaxone Sodium 1 gm/ (Sodium Chloride) 100 mls @ 200 mls/hr IVPB 0800 [facility] Last Admin: 03/30/18 08:56 Dose: 100 mls Levothyroxine Sodium (Synthroid) 50 mcg PO DAILY [facility] Loperamide HCl (Imodium) 2 mg PO PRN PRN PRN Reason: Diarrhea/Loose Stools Metoclopramide HCl (Reglan) 10 mg IVP Q6H PRN PRN Reason: Nausea/Vomiting Metoprolol Succinate (Toprol Xl) 25 mg PO DAILY [facility] Last Admin: 03/30/18 11:24 Dose: Not Given Mineral Oil/White Petrolatum (Eucerin Cream) 0 gm TOP BIDPRN PRN PRN Reason: Dry Skin Multivitamins (Multivit, Chewable Sf) 1 tab PO DAILY [facility] Last Admin: 03/30/18 09:23 Dose: Not Given Nitrofurantoin Macrocrystals (Macrobid) 100 mg PO BID [facility] Last Admin: 03/31/18 01:23 Dose: Not Given Pantoprazole Sodium (Protonix) 40 mg PO DAILY [facility] Last Admin: 03/30/18 11:24 Dose: Not Given Polyethylene Glycol (Miralax) 17 gm PO DAILY [facility] Last Admin: 03/30/18 12:28 Dose: Not Given Quetiapine Fumarate (Seroquel) 25 mg PO BID [facility] Last Admin: 03/31/18 01:23 Dose: Not Given Senna/Docusate Sodium (Senokot S) 2 tab PO BID PRN PRN Reason: Constipation Simvastatin (Zocor) 10 mg PO HS [facility] Last Admin: 03/31/18 01:23 Dose: Not Given Sodium Chloride ([place] Nasal [place] 0.65%) 0 ml EA NARE QIDPRN PRN PRN Reason: Nasal Congestion Sotalol HCl (Betapace) 40 mg PO BID [facility] Last Admin: 03/31/18 01:23 Dose: Not Given Throat Lozenges (Cepastat Lozenges) 1 danita PO Q2H PRN PRN Reason: Sore Throat Tramadol HCl (Ultram) 50 mg PO Q8H PRN PRN Reason: Pain
[2018-03-31] MEDS: cefTRIAXone\\ROCEPHIN 1 GM in Sodium Chloride 0.9% 100 ML IVPB SCH (09:55)
[2018-03-31] MEDS: Aspirin 325 MG TAB PO SCH (10:07)
[2018-03-31] MEDS: Cyanocobalamin (Vitamin B-12) 1,000 MCG TAB PO SCH (10:08)
[2018-03-31] MEDS: Fish Oil 1,000 MG CAP PO SCH (10:08)
[2018-03-31] MEDS: Enoxaparin Sodium 40 MG/0.4 ML SYRINGE SC SCH (10:08)
[2018-03-31] MEDS: Polyethylene Glycol 3350 17 GM Packet PO SCH (10:09)
[2018-03-31] MEDS: Multivit, Chewable SF 1 TAB PO SCH (10:09)
[2018-03-31] MEDS: Folic Acid 1 MG TAB PO SCH (10:09)
[2018-03-31] MEDS: Levothyroxine Sodium 50 MCG TAB PO SCH (10:09)
[2018-03-31] MEDS ORDERED: Ziprasidone 20 MG VIAL ONE (10:30)
[2018-03-31] MEDS ORDERED: Sterile Water 10 ML VIAL FS PRN ×2 (10:52→11:00)
[2018-03-31] MEDS ORDERED: Ziprasidone 20 MG VIAL IM PRN (10:59)
[2018-04-01] MEDS: cefTRIAXone\\ROCEPHIN 1 GM in Sodium Chloride 0.9% 100 ML IVPB SCH (07:58)
[2018-04-01] MEDS: Polyethylene Glycol 3350 17 GM Packet PO SCH (08:04)
[2018-04-01] MEDS: Nitrofurantoin Monohyd/M-Cryst 100 MG CAP PO SCH ×2 (08:07→20:02)
[2018-04-01] MEDS: Cyanocobalamin (Vitamin B-12) 1,000 MCG TAB PO SCH (08:14)
[2018-04-01] MEDS: Levothyroxine Sodium 50 MCG TAB PO SCH (08:14)
[2018-04-01] MEDS: Sotalol HCl 80 MG TAB PO SCH ×2 (08:16→20:02)
[2018-04-01] MEDS: Folic Acid 1 MG TAB PO SCH (08:16)
[2018-04-01] MEDS: Aspirin 325 MG TAB PO SCH (08:16)
[2018-04-01] MEDS: Famotidine 20 MG TAB PO SCH ×2 (08:18→20:02)
[2018-04-01] MEDS: Fish Oil 1,000 MG CAP PO SCH (08:19)
[2018-04-01] MEDS: Enoxaparin Sodium 40 MG/0.4 ML SYRINGE SC SCH (08:19)
[2018-04-01] MEDS: Multivit, Chewable SF 1 TAB PO SCH (08:20)
--- NOTE | 2018-04-01 09:50 | PDOC.PN ---
- Subjective Encounter Start Date: 04/01/18 Encounter Start Time: 07:30 Patient seen and examined. No new complaints. No overnight events - Objective Resuscitation Status - Order Detail: 03/30/18 09:00 Resuscitation Status Routine Resuscitation Status: DNAR: NO Resuscitation Discussed with: discussed with bedside MAR Reviewed: Yes Vital Signs & Weight: Vital Signs (12 hours) Temp Pulse Resp BP BP Pulse Ox 04/01/18 08:16 78 162/79 H 04/01/18 08:07 97.5 F L 78 18 162/79 H 95 Weight Weight 257 lb 15.053 oz Result Diagrams: 03/30/18 09:54 03/30/18 09:54 Phys Exam - Physical Examination Constitutional: NAD HEENT: PERRLA, moist MMs, sclera anicteric Neck: no JVD, supple Respiratory: no wheezing, no rales, no rhonchi Cardiovascular: RRR, no significant murmur, no rub Gastrointestinal: soft, non-tender, no distention, positive bowel sounds Musculoskeletal: no edema, pulses present Neurological: moves all 4 limbs Lymphatic: no nodes Psychiatric: normal affect Skin: no rash, normal turgor Dx/Plan (1) UTI (urinary tract infection) Status: Acute (2) Anemia, macrocytic Code(s): D53.9 - NUTRITIONAL ANEMIA, UNSPECIFIED Status: Chronic (3) Dementia Code(s): F03.90 - UNSPECIFIED DEMENTIA WITHOUT BEHAVIORAL DISTURBANCE Status: Chronic Qualifiers: Dementia type: Alzheimer's disease Dementia behavioral disturbance: with behavioral disturbance (4) Dyslipidemia Code(s): E78.5 - HYPERLIPIDEMIA, UNSPECIFIED Status: Chronic (5) Hypertension Code(s): I10 - ESSENTIAL (PRIMARY) HYPERTENSION Status: Chronic (6) Hypothyroidism Code(s): E03.9 - HYPOTHYROIDISM, UNSPECIFIED Status: Chronic (7) PAF (paroxysmal atrial fibrillation) Code(s): I48.0 - PAROXYSMAL ATRIAL FIBRILLATION Status: Chronic (8) Physical deconditioning Code(s): R53.81 - OTHER MALAISE Status: Chronic - Plan cont current plan of care, 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 Review of Systems - Review of Systems Other: unable to review due to dementia - Medications/Allergies Allergies/Adverse Reactions: Allergies Allergy/AdvReac Type Severity Reaction Status Date / Time iodine Allergy Severe Verified 03/29/18 08:50 Sulfa (Sulfonamide Allergy Severe Verified 03/29/18 08:50 Antibiotics) codeine Allergy Unknown Verified 03/29/18 08:50 lisinopril Allergy Unknown Verified 03/29/18 08:50 losartan [Losartan] Allergy Unknown Verified 03/29/18 08:50 Medications: Current Medications Acetaminophen (Tylenol) 650 mg PO Q4H PRN PRN Reason: Headache/Fever/Mild Pain (1-3) Artificial Tears (Tears Naturale) 2 drop EA EYE PRN PRN PRN Reason: Dry Eyes Aspirin (Aspirin) 325 mg PO DAILY [facility] Last Admin: 04/01/18 08:16 Dose: 325 mg Bisacodyl (Dulcolax) 10 mg PO DAILYPRN PRN PRN Reason: Constipation Bisacodyl (Dulcolax) 10 mg [place] DAILYPRN PRN PRN Reason: Constipation Calcium Carbonate (Tums) 1,000 mg PO Q4H PRN PRN Reason: Heartburn or Indigestion Cyanocobalamin (Vitamin B-12) 1,000 mcg PO DAILY [facility] Last Admin: 04/01/18 08:14 Dose: 1,000 mcg Enoxaparin Sodium (Lovenox) 40 mg SC 0900 [facility] Last Admin: 04/01/18 08:19 Dose: 40 mg Famotidine (Pepcid) 20 mg PO BID [facility] Last Admin: 04/01/18 08:18 Dose: 20 mg Fish Oil (Fish Oil) 1,000 mg PO DAILY [facility] Last Admin: 04/01/18 08:19 Dose: 1,000 mg Folic Acid (Folvite) 1 mg PO DAILY [facility] Last Admin: 04/01/18 08:16 Dose: 1 mg Guaifenesin (Robitussin Sf) 200 mg PO Q4H PRN PRN Reason: Cough Hydralazine HCl (Apresoline) 10 mg SLOW IVP Q4H PRN PRN Reason: SBP > 180 and HR < 70 Ceftriaxone Sodium 1 gm/ (Sodium Chloride) 100 mls @ 200 mls/hr IVPB 0800 [facility] Last Admin: 04/01/18 07:58 Dose: 100 mls Levothyroxine Sodium (Synthroid) 50 mcg PO DAILY [facility] Last Admin: 12/25/18 08:14 Dose: 50 mcg Loperamide HCl (Imodium) 2 mg PO PRN PRN PRN Reason: Diarrhea/Loose Stools Metoclopramide HCl (Reglan) 10 mg IVP Q6H PRN PRN Reason: Nausea/Vomiting Metoprolol Succinate (Toprol Xl) 25 mg PO DAILY [facility] Last Admin: 04/01/18 08:07 Dose: 25 mg Mineral Oil/White Petrolatum (Eucerin Cream) 0 gm TOP BIDPRN PRN PRN Reason: Dry Skin Multivitamins (Multivit, Chewable Sf) 1 tab PO DAILY [facility] Last Admin: 04/01/18 08:20 Dose: 1 tab Nitrofurantoin Macrocrystals (Macrobid) 100 mg PO BID [facility] Last Admin: 04/01/18 08:07 Dose: 100 mg Pantoprazole Sodium (Protonix) 40 mg PO DAILY [facility] Last Admin: 04/01/18 08:18 Dose: 40 mg Polyethylene Glycol (Miralax) 17 gm PO DAILY [facility] Last Admin: 04/01/18 08:04 Dose: 17 gm Quetiapine Fumarate (Seroquel) 25 mg PO BID [facility] Last Admin: 04/01/18 08:08 Dose: 25 mg Senna/Docusate Sodium (Senokot S) 2 tab PO BID PRN PRN Reason: Constipation Simvastatin (Zocor) 10 mg PO HS [facility] Last Admin: 03/31/18 20:33 Dose: Not Given Sodium Chloride ([place] Nasal [place] 0.65%) 0 ml EA NARE QIDPRN PRN PRN Reason: Nasal Congestion Sotalol HCl (Betapace) 40 mg PO BID [facility] Last Admin: 04/01/18 08:16 Dose: 40 mg Sterile Water (Water For Injection) 1.2 ml FS Q6H PRN PRN Reason: TO RECONSTITUTE ZIPRASIDONE Throat Lozenges (Cepastat Lozenges) 1 danita PO Q2H PRN PRN Reason: Sore Throat Tramadol HCl (Ultram) 50 mg PO Q8H PRN PRN Reason: Pain Ziprasidone (Geodon) 10 mg IM Q6H PRN PRN Reason: Agitation
[2018-04-01] MEDS: Simvastatin 5 MG TAB PO SCH (20:01)
[2018-04-02] MEDS: Aspirin 325 MG TAB PO SCH ×2 (09:36→09:49)
[2018-04-02] MEDS: Famotidine 20 MG TAB PO SCH ×3 (09:37→21:29)
[2018-04-02] MEDS: Cyanocobalamin (Vitamin B-12) 1,000 MCG TAB PO SCH ×2 (09:37→09:52)
[2018-04-02] MEDS: Nitrofurantoin Monohyd/M-Cryst 100 MG CAP PO SCH ×2 (09:37→21:29)
[2018-04-02] MEDS: Sotalol HCl 80 MG TAB PO SCH ×2 (09:37→21:30)
[2018-04-02] MEDS: Multivit, Chewable SF 1 TAB PO SCH ×2 (09:37→09:53)
[2018-04-02] MEDS: Levothyroxine Sodium 50 MCG TAB PO SCH (09:41)
[2018-04-02] MEDS: Folic Acid 1 MG TAB PO SCH ×2 (09:42→09:53)
[2018-04-02] MEDS: Fish Oil 1,000 MG CAP PO SCH ×2 (09:42→09:52)
[2018-04-02] MEDS: cefTRIAXone\\ROCEPHIN 1 GM in Sodium Chloride 0.9% 100 ML IVPB SCH (09:42)
[2018-04-02] MEDS: Enoxaparin Sodium 40 MG/0.4 ML SYRINGE SC SCH ×2 (09:42→09:52)
[2018-04-02] MEDS: Polyethylene Glycol 3350 17 GM Packet PO SCH (09:50)
--- NOTE | 2018-04-02 10:05 | PDOC.PN ---
- Subjective Encounter Start Date: 04/02/18 Encounter Start Time: 08:30 pt has very limited po intake, Patient seen and examined. No overnight events - Objective Resuscitation Status - Order Detail: 03/30/18 09:00 Resuscitation Status Routine Resuscitation Status: DNAR: NO Resuscitation Discussed with: discussed with bedside MAR Reviewed: Yes Vital Signs & Weight: Vital Signs (12 hours) Temp Pulse Resp BP BP Pulse Ox 04/02/18 09:37 65 146/62 H 04/02/18 08:55 98.0 F 61 20 118/64 93 L Weight Weight 257 lb 15.053 oz I&O: 04/01/18 04/02/18 04/03/18 06:59 06:59 06:59 Intake Total 580 Balance 580 Result Diagrams: 03/30/18 09:54 03/30/18 09:54 Phys Exam - Physical Examination Constitutional: NAD HEENT: PERRLA, moist MMs, sclera anicteric Neck: no JVD, supple Respiratory: no wheezing, no rales, no rhonchi Cardiovascular: RRR, no significant murmur, no rub Gastrointestinal: soft, non-tender, no distention, positive bowel sounds Musculoskeletal: no edema, pulses present Neurological: moves all 4 limbs Lymphatic: no nodes Psychiatric: normal affect Skin: no rash, normal turgor Dx/Plan (1) UTI (urinary tract infection) Status: Acute (2) Anemia, macrocytic Code(s): D53.9 - NUTRITIONAL ANEMIA, UNSPECIFIED Status: Chronic (3) Dementia Code(s): F03.90 - UNSPECIFIED DEMENTIA WITHOUT BEHAVIORAL DISTURBANCE Status: Chronic Qualifiers: Dementia type: Alzheimer's disease Dementia behavioral disturbance: with behavioral disturbance (4) Dyslipidemia Code(s): E78.5 - HYPERLIPIDEMIA, UNSPECIFIED Status: Chronic (5) Hypertension Code(s): I10 - ESSENTIAL (PRIMARY) HYPERTENSION Status: Chronic (6) Hypothyroidism Code(s): E03.9 - HYPOTHYROIDISM, UNSPECIFIED Status: Chronic (7) PAF (paroxysmal atrial fibrillation) Code(s): I48.0 - PAROXYSMAL ATRIAL FIBRILLATION Status: Chronic (8) Physical deconditioning Code(s): R53.81 - OTHER MALAISE Status: Chronic - Plan cont current plan of care, continue antibiotics * continue rocephin and macrobid * start dext with NS at 75 ml p4er hour * medication reviewed as below * symptomatic treatment. Review of Systems - Review of Systems Other: not reliable due to her advanced dementia - Medications/Allergies Allergies/Adverse Reactions: Allergies Allergy/AdvReac Type Severity Reaction Status Date / Time iodine Allergy Severe Verified 03/29/18 08:50 Sulfa (Sulfonamide Allergy Severe Verified 03/29/18 08:50 Antibiotics) codeine Allergy Unknown Verified 03/29/18 08:50 lisinopril Allergy Unknown Verified 03/29/18 08:50 losartan [Losartan] Allergy Unknown Verified 03/29/18 08:50 Medications: Current Medications Acetaminophen (Tylenol) 650 mg PO Q4H PRN PRN Reason: Headache/Fever/Mild Pain (1-3) Artificial Tears (Tears Naturale) 2 drop EA EYE PRN PRN PRN Reason: Dry Eyes Aspirin (Aspirin) 325 mg PO DAILY [facility] Last Admin: 04/02/18 09:49 Dose: Not Given Bisacodyl (Dulcolax) 10 mg PO DAILYPRN PRN PRN Reason: Constipation Bisacodyl (Dulcolax) 10 mg [place] DAILYPRN PRN PRN Reason: Constipation Calcium Carbonate (Tums) 1,000 mg PO Q4H PRN PRN Reason: Heartburn or Indigestion Cyanocobalamin (Vitamin B-12) 1,000 mcg PO DAILY [facility] Last Admin: 04/02/18 09:52 Dose: Not Given Enoxaparin Sodium (Lovenox) 40 mg SC 0900 [facility] Last Admin: 04/02/18 09:52 Dose: Not Given Famotidine (Pepcid) 20 mg PO BID [facility] Last Admin: 04/02/18 09:49 Dose: Not Given Fish Oil (Fish Oil) 1,000 mg PO DAILY [facility] Last Admin: 04/02/18 09:52 Dose: Not Given Folic Acid (Folvite) 1 mg PO DAILY [facility] Last Admin: 04/02/18 09:53 Dose: Not Given Guaifenesin (Robitussin Sf) 200 mg PO Q4H PRN PRN Reason: Cough Hydralazine HCl (Apresoline) 10 mg SLOW IVP Q4H PRN PRN Reason: SBP > 180 and HR < 70 Ceftriaxone Sodium 1 gm/ (Sodium Chloride) 100 mls @ 200 mls/hr IVPB 0800 [facility] Last Admin: 04/02/18 09:42 Dose: 100 mls Dextrose/Sodium Chloride (D5 0.9% Ns) 1,000 mls @ 75 mls/hr IV .[id number] [facility] Levothyroxine Sodium (Synthroid) 50 mcg PO DAILY [facility] Last Admin: 04/02/18 09:41 Dose: 50 mcg Loperamide HCl (Imodium) 2 mg PO PRN PRN PRN Reason: Diarrhea/Loose Stools Metoclopramide HCl (Reglan) 10 mg IVP Q6H PRN PRN Reason: Nausea/Vomiting Metoprolol Succinate (Toprol Xl) 25 mg PO DAILY [facility] Last Admin: 04/02/18 09:50 Dose: Not Given Mineral Oil/White Petrolatum (Eucerin Cream) 0 gm TOP BIDPRN PRN PRN Reason: Dry Skin Multivitamins (Multivit, Chewable Sf) 1 tab PO DAILY [facility] Last Admin: 04/02/18 09:53 Dose: Not Given Nitrofurantoin Macrocrystals (Macrobid) 100 mg PO BID [facility] [place] Last Admin: 04/02/18 09:37 Dose: 100 mg Pantoprazole Sodium (Protonix) 40 mg PO DAILY [facility] Last Admin: 04/02/18 09:50 Dose: Not Given Polyethylene Glycol (Miralax) 17 gm PO DAILY [facility] Last Admin: 04/02/18 09:50 Dose: Not Given Quetiapine Fumarate (Seroquel) 25 mg PO BID [facility] Last Admin: 04/02/18 09:36 Dose: 25 mg Senna/Docusate Sodium (Senokot S) 2 tab PO BID PRN PRN Reason: Constipation Simvastatin (Zocor) 10 mg PO HS [facility] Last Admin: 04/01/18 20:01 Dose: 10 mg Sodium Chloride ([place] Nasal [place] 0.65%) 0 ml EA NARE QIDPRN PRN PRN Reason: Nasal Congestion Sotalol HCl (Betapace) 40 mg PO BID [facility] Last Admin: 04/02/18 09:37 Dose: 40 mg Sterile Water (Water For Injection) 1.2 ml FS Q6H PRN PRN Reason: TO RECONSTITUTE ZIPRASIDONE Throat Lozenges (Cepastat Lozenges) 1 danita PO Q2H PRN PRN Reason: Sore Throat Tramadol HCl (Ultram) 50 mg PO Q8H PRN PRN Reason: Pain Last Admin: 04/01/18 18:25 Dose: 50 mg Ziprasidone (Geodon) 10 mg IM Q6H PRN PRN Reason: Agitation
[2018-04-02] MEDS: Dextrose 5 % And 0.9 % NaCl 1,000 ML IV SCH ×2 (11:09→23:28)
--- NOTE | 2018-04-02 14:10 | PQF ---
CLINICAL DOCUMENTATION IMPROVEMENT CLARIFICATION FORM: ICD-10 Updated PLEASE DO AN ADDENDUM TO THE PROGRESS NOTE WITH ANY DOCUMENTATION UPDATES OR ADDITIONS AND CARRY THROUGH TO DC SUMMARY. THANK YOU. DATE: 04/02/18 ATTN: DR. MORALES Please exercise your independent, professional judgment in responding to the clarification form. Clinical indicators are provided on the bottom of this form for your review Please check appropriate box(s): [ x ] Encephalopathy: Type: [x ] Acute [ ] Subacute [ ] Chronic Etiology: [ ] Hypertensive [ ] Metabolic [ ] Toxic [ ] Hepatic w/o Coma [ ] Hypoxic [ x ] Septic [ ] Drug induced: [ ] Unspecified [ ] in the setting of underlying dementia [ ] Other (please specify) [ ] Transient Alteration of Awareness [ ] Other diagnosis [ ] Unable to determine In addition, please specify: Present on Admission (POA): [ x ] Yes [ ] No [ ] Unable to determine For continuity of documentation, please document condition throughout progress notes and discharge summary. Thank You. CLINICAL INDICATORS - SIGNS / SYMPTOMS / LABS H&P: "ACUTE ENCEPHALOPATHY" NURSING NOTE: 03/29: "PT CONFUSED. PULLING AT IV LINE, AND TAPE..." NURSING NOTE 03/31: "PT. REFUSED AND BEGAN CUSSING AT RN. RN ATTEMPTED SEROQUEL IN PUDDING, PT THREW SPOON ON FLOOR AND ATTEMPTED TO PUNCH/SCRATCH RN..." RISKS: UTI H/O DEMENTIA ADVANCED AGE TREATMENT: URINE CULTURE USE OF BED ALARM (PER NURSING NOTE 03/29) SEROQUEL (03/29-PRESENT) MACROBID (03/30-PRESENT) IV ROCEPHIN (03/29-PRESENT) IV FLUIDS (ORDERED 04/02) (This form is maintained as a part of the permanent medical record) 2014 [email or web address] All Rights Reserved MARGARITO [email or web address] Office: [phone] [facility]
[2018-04-02] MEDS: Simvastatin 5 MG TAB PO SCH (21:30)
[2018-04-03] MEDS: Sotalol HCl 80 MG TAB PO SCH (08:19)
[2018-04-03] MEDS: Levothyroxine Sodium 50 MCG TAB PO SCH (08:20)
[2018-04-03] MEDS: Aspirin 325 MG TAB PO SCH (08:20)
[2018-04-03] MEDS: Nitrofurantoin Monohyd/M-Cryst 100 MG CAP PO SCH (08:20)
[2018-04-03] MEDS: Cyanocobalamin (Vitamin B-12) 1,000 MCG TAB PO SCH (08:20)
[2018-04-03] MEDS: cefTRIAXone\\ROCEPHIN 1 GM in Sodium Chloride 0.9% 100 ML IVPB SCH (08:20)
[2018-04-03] MEDS: Enoxaparin Sodium 40 MG/0.4 ML SYRINGE SC SCH (08:27)
[2018-04-03] MEDS: Fish Oil 1,000 MG CAP PO SCH (08:28)
[2018-04-03] MEDS: Famotidine 20 MG TAB PO SCH (08:28)
[2018-04-03] MEDS: Polyethylene Glycol 3350 17 GM Packet PO SCH (08:29)
[2018-04-03] MEDS: Folic Acid 1 MG TAB PO SCH (08:29)
[2018-04-03] MEDS: Multivit, Chewable SF 1 TAB PO SCH (08:29)
[2018-04-03 11:47] VITALS: BP 117/72; TEMP 97.6
--- NOTE | 2018-04-03 12:49 | DIS ---
DATE OF ADMISSION: 03/29/2018 DATE OF DISCHARGE: 04/03/2018 PRIMARY CARE PHYSICIAN: [facility] Call Admission. DISCHARGE DISPOSITION: Home with home health. PRIMARY DISCHARGE DIAGNOSES: Acute encephalopathy, resolved and now baseline dementia, urinary tract infection. SECONDARY DISCHARGE DIAGNOSES: Macrocytic anemia, Alzheimer dementia with behavioral disturbance, dyslipidemia, paroxysmal atrial fibrillation, hypothyroidism, hypertension, and physical deconditioning. PRIMARY PROCEDURE/OPERATION: None. RADIOLOGICAL INVESTIGATION: CT brain negative. Chest x-ray normal. SIGNIFICANT LABORATORY DATA: WBC 9.1, hemoglobin 13.0, platelet 246. INR 1.0. Sodium 135, potassium 3.5, BUN 9, creatinine 0.60, calcium 9.3, AST 11, ALT 9, alkaline phosphatase 55, albumin 3.3. Urinalysis suggestive of UTI. Urine culture negative. DISCHARGE MEDICATIONS: 1. Keflex 500 mg p.o. twice daily for five more days. 2. Folic acid 1 mg daily. 3. Tramadol 50 mg q.8 hourly p.r.n. 4. Coenzyme Q10, 200 mg daily. 5. Trimethoprim 100 mg daily. 6. Sotalol 40 mg b.i.d. 7. Zocor 10 mg p.o. at bedtime. 8. Protonix 40 mg daily. 9. Fish oil one capsule daily. 10. Multivitamin 1 tablet daily. 11. Toprol-XL 25 mg daily. 12. Levothyroxine 50 mcg daily. 13. Lasix 20 mg daily. 14. Vitamin B12, 1000 mcg p.o. daily. 15. Cranberry one tablet daily. 16. Calcium with vitamin D 1 tablet daily. 17. Probiotics one capsule daily. 18. Aspirin 325 mg daily. CONTRAINDICATION: None. CODE STATUS: Full code. INPATIENT CONSULTANTS: None. ALLERGIES: IODINE, SULFA, CODEINE, LISINOPRIL, LOSARTAN. DISCHARGE PLAN: Post hospital, the patient is planned for discharge to home with home health. Subsequently, the patient will follow up with primary care physician. HOSPITAL COURSE: An 82-year-old female with above-mentioned medical problem, who was admitted by me. Please see my HPI for further details. She was admitted on March 29, 2018. She went to local emergency room in [place], where she was found with altered mental status and she had urinary tract infection. She was initially evaluated there and she was sent to home. Subsequently, the patient went to [facility], where she was evaluated and transferred to our hospital for admission. The patient was having encephalopathy from UTI, which was improved and now up to her baseline. While in hospital, we treated her with Rocephin, Macrobid, and we gave her IV fluids. The patient's condition significantly improved. While in the hospital, she also had couple of times delirious episode during nighttime, which was related with her Alzheimer dementia with behavior disturbance. This patient was initially planned for discharge to assisted, but her decided to take her home with home health. Initially, the patient's decided to make her DNR, but as the patient's condition improved, then he changed his mind and made full code. So by the time of discharge, the patient was full code and he wanted to continue full code status. The patient's decided that he does not want any assisted placement and rather he will take her home with home health. At this point, the patient is medically stable. I have seen and examined the patient at bedside today. Plan of care discussed with the patient as well as her . Code status, full code, confirmed today. REVIEW OF SYSTEMS: Not reliable with the patient because of dementia. PHYSICAL EXAMINATION: VITAL SIGNS: Currently, temperature 97.6, pulse 76, respiratory rate 18, saturation 96% on room air, and blood pressure 117/72. Weight 257 pounds. GENERAL: The patient is currently alert and awake, in no obvious acute distress. HEENT: Head, normocephalic and atraumatic. Eyes, pupils round and reactive to light. Extraocular muscle intact. ENT, oropharynx within normal limits. Moist mucous membranes. No pharyngeal erythema. No exudate. NECK: Supple. No JVD. No thyromegaly. No carotid bruit. LUNGS: Clear to auscultation without any rhonchi or rales. CARDIAC: S1 and S2, regular without any murmur. ABDOMEN: Soft and benign. EXTREMITIES: No edema. NEUROLOGIC: Nonfocal examination. The patient is medically stable for discharge today. Job ID: [id number]
--- NOTE | 2018-04-03 12:57 | PDOC.PN ---
- Subjective Encounter Start Date: 04/03/18 Encounter Start Time: 08:30 Patient seen and examined. No new complaints. No overnight events - Objective Resuscitation Status - Order Detail: 04/02/18 16:11 Resuscitation Status Routine Resuscitation Status: FULL: Full Resuscitation Discussed with: DNAR revoked by /MPOA at bedside MAR Reviewed: Yes Vital Signs & Weight: Vital Signs (12 hours) Temp Pulse Resp BP BP Pulse Ox 04/03/18 11:46 97.6 F 76 18 117/72 96 04/03/18 08:19 72 148/50 H 04/03/18 08:00 97.4 F L 72 18 148/50 H 94 L Weight Weight 257 lb 15.053 oz I&O: 04/02/18 04/03/18 04/04/18 06:59 06:59 06:59 Intake Total 580 900 Balance 580 900 Result Diagrams: 03/30/18 09:54 03/30/18 09:54 Phys Exam - Physical Examination Constitutional: NAD HEENT: PERRLA, moist MMs, sclera anicteric Neck: no JVD, supple Respiratory: no wheezing, no rales, no rhonchi Cardiovascular: RRR, no significant murmur, no rub Gastrointestinal: soft, non-tender, no distention, positive bowel sounds Musculoskeletal: no edema, pulses present Neurological: non-focal, moves all 4 limbs Lymphatic: no nodes Psychiatric: normal affect Skin: no rash, normal turgor Dx/Plan (1) UTI (urinary tract infection) Status: Acute (2) Anemia, macrocytic Code(s): D53.9 - NUTRITIONAL ANEMIA, UNSPECIFIED Status: Chronic (3) Dementia Code(s): F03.90 - UNSPECIFIED DEMENTIA WITHOUT BEHAVIORAL DISTURBANCE Status: Chronic Qualifiers: Dementia type: Alzheimer's disease Dementia behavioral disturbance: with behavioral disturbance (4) Dyslipidemia Code(s): E78.5 - HYPERLIPIDEMIA, UNSPECIFIED Status: Chronic (5) Hypertension Code(s): I10 - ESSENTIAL (PRIMARY) HYPERTENSION Status: Chronic (6) Hypothyroidism Code(s): E03.9 - HYPOTHYROIDISM, UNSPECIFIED Status: Chronic (7) PAF (paroxysmal atrial fibrillation) Code(s): I48.0 - PAROXYSMAL ATRIAL FIBRILLATION Status: Chronic (8) Physical deconditioning Code(s): R53.81 - OTHER MALAISE Status: Chronic - Plan cont current plan of care, plan discussed w/ family, continue antibiotics, social worker * medication reviewed as below * symptomatic treatment * see my discharge almasharita. Review of Systems - Review of Systems Other: not reliable due to dementia - Medications/Allergies Allergies/Adverse Reactions: Allergies Allergy/AdvReac Type Severity Reaction Status Date / Time iodine Allergy Severe Verified 03/29/18 08:50 Sulfa (Sulfonamide Allergy Severe Verified 03/29/18 08:50 Antibiotics) codeine Allergy Unknown Verified 03/29/18 08:50 lisinopril Allergy Unknown Verified 03/29/18 08:50 losartan [Losartan] Allergy Unknown Verified 03/29/18 08:50 Medications: Current Medications Acetaminophen (Tylenol) 650 mg PO Q4H PRN PRN Reason: Headache/Fever/Mild Pain (1-3) Artificial Tears (Tears Naturale) 2 drop EA EYE PRN PRN PRN Reason: Dry Eyes Aspirin (Aspirin) 325 mg PO DAILY [facility] Last Admin: 04/03/18 08:20 Dose: 325 mg Bisacodyl (Dulcolax) 10 mg PO DAILYPRN PRN PRN Reason: Constipation Bisacodyl (Dulcolax) 10 mg [place] DAILYPRN PRN PRN Reason: Constipation Calcium Carbonate (Tums) 1,000 mg PO Q4H PRN PRN Reason: Heartburn or Indigestion Cyanocobalamin (Vitamin B-12) 1,000 mcg PO DAILY [facility] Last Admin: 04/03/18 08:20 Dose: 1,000 mcg Enoxaparin Sodium (Lovenox) 40 mg SC 0900 [facility] Last Admin: 04/03/18 08:27 Dose: Not Given Famotidine (Pepcid) 20 mg PO BID [facility] Last Admin: 04/03/18 08:28 Dose: Not Given Fish Oil (Fish Oil) 1,000 mg PO DAILY [facility] Last Admin: 04/03/18 08:28 Dose: Not Given Folic Acid (Folvite) 1 mg PO DAILY [facility] Last Admin: 04/03/18 08:29 Dose: Not Given Guaifenesin (Robitussin Sf) 200 mg PO Q4H PRN PRN Reason: Cough Hydralazine HCl (Apresoline) 10 mg SLOW IVP Q4H PRN PRN Reason: SBP > 180 and HR < 70 Ceftriaxone Sodium 1 gm/ (Sodium Chloride) 100 mls @ 200 mls/hr IVPB 0800 [facility] Last Admin: 04/03/18 08:20 Dose: 100 mls Dextrose/Sodium Chloride (D5 0.9% Ns) 1,000 mls @ 75 mls/hr IV .[id number] [facility] Last Admin: 04/02/18 23:28 Dose: 1,000 mls Levothyroxine Sodium (Synthroid) 50 mcg PO DAILY [facility] Last Admin: 04/03/18 08:20 Dose: 50 mcg Loperamide HCl (Imodium) 2 mg PO PRN PRN PRN Reason: Diarrhea/Loose Stools Metoclopramide HCl (Reglan) 10 mg IVP Q6H PRN PRN Reason: Nausea/Vomiting Metoprolol Succinate (Toprol Xl) 25 mg PO DAILY [facility] Last Admin: 04/03/18 08:18 Dose: 25 mg Mineral Oil/White Petrolatum (Eucerin Cream) 0 gm TOP BIDPRN PRN PRN Reason: Dry Skin Multivitamins (Multivit, Chewable Sf) 1 tab PO DAILY [facility] Last Admin: 04/03/18 08:29 Dose: Not Given Nitrofurantoin Macrocrystals (Macrobid) 100 mg PO BID [facility] Last Admin: 04/03/18 08:20 Dose: 100 mg Pantoprazole Sodium (Protonix) 40 mg PO DAILY [facility] Last Admin: 04/03/18 08:20 Dose: 40 mg Polyethylene Glycol (Miralax) 17 gm PO DAILY [facility] Last Admin: 04/03/18 08:29 Dose: Not Given Quetiapine Fumarate (Seroquel) 25 mg PO BID [facility] Last Admin: 04/03/18 08:18 Dose: 25 mg Senna/Docusate Sodium (Senokot S) 2 tab PO BID PRN PRN Reason: Constipation Simvastatin (Zocor) 10 mg PO HS [facility] Last Admin: 04/02/18 21:30 Dose: Not Given Sodium Chloride ([place] Nasal [place] 0.65%) 0 ml EA NARE QIDPRN PRN PRN Reason: Nasal Congestion Sotalol HCl (Betapace) 40 mg PO BID [facility] Last Admin: 04/03/18 08:19 Dose: 40 mg Sterile Water (Water For Injection) 1.2 ml FS Q6H PRN PRN Reason: TO RECONSTITUTE ZIPRASIDONE Throat Lozenges (Cepastat Lozenges) 1 danita PO Q2H PRN PRN Reason: Sore Throat Tramadol HCl (Ultram) 50 mg PO Q8H PRN PRN Reason: Pain Last Admin: 04/01/18 18:25 Dose: 50 mg Ziprasidone (Geodon) 10 mg IM Q6H PRN PRN Reason: Agitation
--- NOTE | 2018-04-04 15:11 | EKG ---
Test Reason : Blood Pressure : / mmHG Vent. Rate : 080 BPM Atrial Rate : 080 BPM P-R Int : 360 ms QRS Dur : 078 ms QT Int : 436 ms P-R-T Axes : 000 -10 127 degrees QTc Int : 502 ms Electronic atrial pacemaker Septal infarct , age undetermined Abnormal ECG Confirmed by PIPE CALLAWAY D.O. ([id number]), graphic editor ALY BARDALES ([id number]) on 04/04/2018 3:11:10 PM Referred By: Confirmed By:PIPE CALLAAWY D.O.
== END 2018-04-03 14:19 | disposition home health service (06) | DRG 689 ==
LOC: ERS 05:12 → T4-A 06:00
PROVIDERS: ADMIT Internal Medicine; ATTEND Internal Medicine
DX: N39.0 Urinary tract infection, site not specified (principal); G93.41 Metabolic encephalopathy; F02.81 Dementia in other diseases classified elsewhere, unspecified severity, with behavioral disturbance; I10 Essential (primary) hypertension; K21.9 Gastro-esophageal reflux disease without esophagitis; E03.9 Hypothyroidism, unspecified; E78.5 Hyperlipidemia, unspecified; I48.0 Paroxysmal atrial fibrillation; G30.9 Alzheimer's disease, unspecified; D53.9 Nutritional anemia, unspecified; Z88.5 Allergy status to narcotic agent; Z88.2 Allergy status to sulfonamides; Z88.8 Allergy status to other drugs, medicaments and biological substances; Z79.82 Long term (current) use of aspirin; Z79.899 Other long term (current) drug therapy; Z95.0 Presence of cardiac pacemaker
CPT/HCPCS: 36415; 51701; 70450; 71045; 80048; 80053; 81003; 81015; 85025; 85610; 85730; 87086; 93005; A4216; A4353; G8978-GP-CL; G8979-GP-CJ; G8987-GO-CL; G8988-GO-CJ; J0696; J1650; J1956; J3486; J7050